=== PATIENT | male | born 1935 | race Caucasian/White ===

== ENCOUNTER → 2016-06-30 | Outpatient (CLI) | payer MEDICARE ==
--- NOTE | 2016-06-30 12:39 | XR ---
EXAMINATION TYPE: XR chest 2V DATE OF EXAM: 06/30/2016 12:33 PM HISTORY: pre-mri. REFERENCE: NONE. FINDINGS: Lung volumes are prominent. There is a lobulated 10 mm lesion in the right upper lobe. The lungs are otherwise clear. Pleural spaces are clear. There is mild hypertrophic spondylosis within the spine. IMPRESSION: LOBULATED 10 MM LESION IN THE RIGHT UPPER LOBE IS LIKELY BENIGN. NO DEFINITE LESION WAS SEEN ON A PRE VIOUS CT SCAN DATED 04/26/2015. 3 MONTHS FOLLOW-UP RADIOGRAPH WOULD BE SUGGESTED.
--- NOTE | 2016-06-30 12:40 | FL ---
EXAMINATION TYPE: FL barium swallow DATE OF EXAM ORDERED: 06/30/2016 12:32 PM HISTORY: Dysphasia. COMPARISON: None. FINDINGS: The esophagus distended normally with air and barium without evidence of obstructing or co nstricting disease. The mucosal pattern throughout the esophagus is normal. There is no significant h iatal hernia or reflux. Limited views of the stomach are normal. IMPRESSION: NORMAL AIR-CONTRAST ESOPHAGRAM.
== END | disposition home or self-care (01) ==
LOC: RADFLWHC 11:03
PROVIDERS: ATTEND Otolaryngology
DX: R91.1 Solitary pulmonary nodule (principal); R13.10 Dysphagia, unspecified; R49.0 Dysphonia
CPT/HCPCS: 71020; 74220

== ENCOUNTER → 2016-07-26 | Outpatient (CLI) | payer MEDICARE ==
--- NOTE | 2016-07-26 12:01 | CT ---
EXAMINATION TYPE: CT sinus wo con DATE OF EXAM: 07/26/2016 11:49 AM COMPARISON: NONE HISTORY: Chronic sinusitis per order. Headache and facial pain. CT DLP: 635 mGycm. Automated Exposure Control for Dose Reduction was Utilized. TECHNIQUE: CT scan of the sinuses is performed without contrast, axial images are obtained, coronal r eformatted images are also reviewed. FINDINGS: There is mild mucosal thickening with suspicious patchy opacification in the left sphenoid sinus. Remainder paranasal sinuses are clear. The ostiomeatal complex is patent bilaterally on the c oronal images. Visualized portion of mastoid air cells show no abnormal opacification. Scleral calcification in both globes is present bilaterally and a follow most is noted. Visualized portion of brain parenchyma laura ws age-related atrophy and chronic small vessel ischemic change. IMPRESSION: Acute on chronic left sphenoid sinus disease.
== END | disposition home or self-care (01) ==
LOC: RADCTMAIN 11:19
PROVIDERS: ATTEND Otolaryngology
DX: J34.9 Unspecified disorder of nose and nasal sinuses (principal)
CPT/HCPCS: 70486

== ENCOUNTER 2016-08-16 14:10 | Emergency (ER) | payer MEDICARE ==
[2016-08-16] MEDS ORDERED: SODIUM CHLORIDE 0.9% 1,000 ML IV STA (14:53)
--- NOTE | 2016-08-16 15:03 | ED ---
General Adult HPI - General Chief complaint: Recheck/Abnormal Lab/Rx Stated complaint: high sugars Time Seen by Provider: 08/16/16 14:31 Source: patient Mode of arrival: ambulatory Limitations: no limitations - History of Present Illness Initial comments: The patient is an 81-year-old male who presents to the ED with a chief complaint of sweatiness as well as elevated blood glucose level. Patient states that around 11 AM this morning he had an episode where he felt sweaty and diaphoretic in the bilateral arms. He states that he's felt fatigued over the course of the day. Patient notes that he checked his blood glucose after this episode of sweatiness and noted that it was elevated in the upper 100s. He rechecked it later in the day and noted that it was elevated above 200. As result, he came to the ED for further evaluation. Here in the ED, the patient' s blood glucose was noted to be greater than 250. Patient states that normally he checks his blood glucose level once a week and it's between 80 and 100. He states that he's had similar symptoms to today when he has had an elevated blood glucose in the past. Patient does have a history of CAD. Patient has no history of stent placement. He states that he was evaluated for a possible CABG but that this was not performed due to the fact that his obstructions seemed to be self resolving. Patient does have risk factors of hypertension, hyperlipidemia, diabetes. Patient states that his last hemoglobin A1c was less than 7, though he does not remember the number. Patient notes that he suffers from chronic sinusitis. He's been receiving treatment IV his doctor for this problem. This treatment is not included steroids. Patient denies any cough, shortness of breath. Patient denies any dysuria or hematuria. Patient states the only medication he takes for his diabetes is glipizide. He notes that he's been taking this medication as directed. None of his medications have been altered recently. - Related Data Home Medications Medication Instructions Recorded Confirmed Adta 1 tab PO DAILY 06/18/15 08/16/16 Alpha Lipoic Acid 50 mg PO DAILY 06/18/15 08/16/16 Aspirin 81 mg PO DAILY 06/18/15 08/16/16 B Complex-Vit C-Vit E-Zinc [Z-Bec] 1 tab PO DAILY 06/18/15 08/16/16 Benfotiamine 1 tab PO DAILY 06/18/15 08/16/16 Betasitosteral (Otc Supplement By 1 tab PO DAILY 06/18/15 08/16/16 Bacilio) Cinnamon Bark [Cinnamon] 500 mg PO DAILY 06/18/15 08/16/16 Joint Advantage Gold Complex 1 tab PO DAILY 06/18/15 08/16/16 L-Arginine 1 tab PO DAILY 06/18/15 08/16/16 L.acidoph,Paracasei, B.lactis 1 cap PO DAILY 06/18/15 08/16/16 [Probiotic] Erick [place] Extract 1 tab PO DAILY 06/18/15 08/16/16 [place] Q Plus 1 tab PO DAILY 06/18/15 08/16/16 Testofen 1 tab PO DAILY 06/18/15 08/16/16 Ubiquinol 100 mg PO DAILY 06/18/15 08/16/16 glipiZIDE [Glucotrol] 10 mg PO AC-BID 06/18/15 08/16/16 Cholecalciferol [Vitamin D3] 5,000 unit PO DAILY 08/16/16 08/16/16 Metoprolol Tartrate [Lopressor] 12.5 mg PO BID 08/16/16 08/16/16 Multivitamins, Thera [Multivitamin 1 tab PO DAILY 08/16/16 08/16/16 (formulary)] Vitamin B Complex 1 cap PO DAILY 08/16/16 08/16/16 fentaNYL 50MCG/HR PATCH [Duragesic 50 mcg TRANSDERM Q72H 08/16/16 08/16/16 50MCG/HR] Allergies Allergy/AdvReac Type Severity Reaction Status Date / Time Iodine and Iodide Containing Allergy Anaphylaxis Verified 08/16/16 14:27 Produc Review of Systems ROS Statement: Those systems with pertinent positive or pertinent negative responses have been documented in the HPI. ROS Other: All systems not noted in ROS Statement are negative. Constitutional: Reports: other (sweatiness, claminess). Denies: fever, chills, weakness Eyes: Denies: vision change ENT: Reports: congestion (chronic). Denies: throat pain Respiratory: Denies: cough, dyspnea, wheezes, hemoptysis, stridor Cardiovascular: Denies: chest pain, palpitations Endocrine: Reports: fatigue Gastrointestinal: Denies: abdominal pain, nausea, vomiting, diarrhea Genitourinary: Denies: urgency, dysuria, frequency, hematuria Musculoskeletal: Denies: back pain Skin: Denies: rash, lesions Neurological: Denies: headache, weakness, numbness, paresthesias, confusion Psychiatric: Denies: anxiety, depression Past Medical History Past Medical History: Coronary Artery Disease (CAD), Diabetes Mellitus, Eye Disorder, GERD/Reflux, Osteoarthritis (OA), Prostate Disorder Additional Past Medical History / Comment(s): OCC GERD. HX CATARACTS. CHRONIC BACK, LT KNEE. BPH. History of Any Multi-Drug Resistant Organisms: None Reported Past Surgical History: Appendectomy, Heart Catheterization Past Anesthesia/Blood Transfusion Reactions: No Reported Reaction Past Psychological History: Depression Additional Psychological History / Comment(s): "NORMAL" OCC Smoking Status: Never smoker Past Alcohol Use History: None Reported Past Drug Use History: None Reported - Past Family History Father Family Medical History: Cancer General Exam Limitations: no limitations General appearance: alert, in no apparent distress Head exam: Present: atraumatic, normocephalic Eye exam: Present: normal appearance, PERRL, other (conjunctiva are non-pale in appearance) Pupils: Present: normal accommodation ENT exam: Present: normal exam, normal oropharynx Neck exam: Present: normal inspection, full ROM Respiratory exam: Present: normal lung sounds bilaterally. Absent: respiratory distress, wheezes, rales, rhonchi, stridor, chest wall tenderness Cardiovascular Exam: Present: regular rate, normal rhythm GI/Abdominal exam: Present: soft. Absent: distended, tenderness, guarding, rebound Extremities exam: Present: normal inspection, full ROM. Absent: tenderness Back exam: Present: normal inspection, full ROM. Absent: tenderness Neurological exam: Present: alert, oriented X3. Absent: CN II-XII intact Psychiatric exam: Present: normal affect, normal mood Skin exam: Present: warm, dry, intact Course Vital Signs 08/16/16 08/16/16 08/16/16 14:10 15:43 17:08 Temperature 98.1 F 98 F 96.9 F L Pulse Rate 68 70 67 Respiratory 15 16 18 Rate Blood Pressure 133/63 111/60 124/57 O2 Sat by Pulse 97 98 99 Oximetry EKG Findings - EKG Comments: EKG Findings:: EKG demonstrates NSR with a RBBB. There is first degree AV block. This EKG resembles past EKG in terms of overall findings. Medical Decision Making - Medical Decision Making The patient is an 81-year-old male who presents to the ED with a chief complaint of elevated blood glucose level. Patient states that he also experienced an episode of diaphoresis earlier today. It is not associated with shortness of breath or chest pain. However, the patient does have multiple cardiac risk factors. Will check a troponin and EKG. Otherwise, will try to rule out possible infectious etiology that could cause patient's glucose level to be elevated. One should consider that the patient's blood glucose level could be elevated on a daily basis but that he is not noticing this because he is not checking his blood glucose daily. However, the patient states that the symptoms that he had today are typical when he has a elevated blood glucose. He notes that his hemoglobin A1c has been within normal limits. Is not changed any medications recently. He has not been on any steroids. 5:00 PM Patient has a repeat glucose at 250. Counseled patient that he might have underlying elevated glucose level at baseline. He needs to follow up with her primary care practitioner to further determine whether this is the case or if his glucose is acutely elevated. Patient asymptomatic in regards to his hyperglycemia at this point in time. He may need to have a change in his medications including the addition of metformin to his sulfonyurea. There is also the possibility that the patient's sulfonylurea medication is no longer working adequately. Counseled the patient with these possibilities. I have encouraged him to return to the ED should he have worsening symptoms, including increased episodes of clamminess and diaphoresis. I provided the patient with follow-up information to a new PCP at his request. I have answered all the patient's questions to his satisfaction. - Lab Data Result diagrams: 08/16/16 15:17 08/16/16 15:17 Lab Results 08/16/16 08/16/16 08/16/16 Range/Units 14:17 15:17 15:17 WBC 7.0 (3.8-10.6) k/uL RBC 4.42 (4.30-5.90) m/uL Hgb 13.9 (13.0-17.5) gm/dL Hct 40.7 (39.0-53.0) % MCV 92.1 (80.0-100.0) fL MCH 31.4 (25.0-35.0) pg MCHC 34.1 (31.0-37.0) g/dL RDW 13.4 (11.5-15.5) % Plt Count 516 H (150-450) k/uL Neutrophils % 80 % Lymphocytes % 14 % Monocytes % 4 % Eosinophils % 1 % Basophils % 1 % Neutrophils # 5.6 (1.3-7.7) k/uL Lymphocytes # 1.0 (1.0-4.8) k/uL Monocytes # 0.3 (0-1.0) k/uL Eosinophils # 0.1 (0-0.7) k/uL Basophils # 0.0 (0-0.2) k/uL Sodium 137 (137-145) mmol/L Potassium 4.8 (3.5-5.1) mmol/L Chloride 100 (98-107) mmol/L Carbon Dioxide 30 (22-30) mmol/L Anion Gap 7 mmol/L BUN 16 (9-20) mg/dL Creatinine 0.60 L (0.66-1.25) mg/dL Est GFR (MDRD) Af Amer >60 (>60 ml/min/1.73 sqM) Est GFR (MDRD) Non-Af >60 (>60 ml/min/1.73 sqM) Glucose 268 H (74-99) mg/dL POC Glucose (mg/dL) 250 H (75-99) mg/dL POC Glu [employer] Raman Mcgregor Calcium 8.8 (8.4-10.2) mg/dL Magnesium 2.0 (1.6-2.3) mg/dL Troponin I (0.000-0.034) ng/mL TSH 0.105 L (0.465-4.680) mIU/L Free T4 1.29 (0.78-2.19) ng/dL Urine Color Urine Appearance (Clear) Urine pH (5.0-8.0) Ur Specific [place] (1.001-1.035) Urine Protein (Negative) Urine Glucose (UA) (Negative) Urine Ketones (Negative) Urine Blood (Negative) Urine Nitrite (Negative) Urine Bilirubin (Negative) Urine Urobilinogen (<2.0) mg/dL Ur Leukocyte Esterase (Negative) 05/03/17 05/03/17 05/03/17 Range/Units 15:17 15:17 16:43 WBC (3.8-10.6) k/uL RBC (4.30-5.90) m/uL Hgb (13.0-17.5) gm/dL Hct (39.0-53.0) % MCV (80.0-100.0) fL MCH (25.0-35.0) pg MCHC (31.0-37.0) g/dL RDW (11.5-15.5) % Plt Count (150-450) k/uL Neutrophils % % Lymphocytes % % Monocytes % % Eosinophils % % Basophils % % Neutrophils # (1.3-7.7) k/uL Lymphocytes # (1.0-4.8) k/uL Monocytes # (0-1.0) k/uL Eosinophils # (0-0.7) k/uL Basophils # (0-0.2) k/uL Sodium (137-145) mmol/L Potassium (3.5-5.1) mmol/L Chloride (98-107) mmol/L Carbon Dioxide (22-30) mmol/L Anion Gap mmol/L BUN (9-20) mg/dL Creatinine (0.66-1.25) mg/dL Est GFR (MDRD) Af Amer (>60 ml/min/1.73 sqM) Est GFR (MDRD) Non-Af (>60 ml/min/1.73 sqM) Glucose (74-99) mg/dL POC Glucose (mg/dL) 250 H (75-99) mg/dL POC Glu [employer]riction Welding Machine Operator ID Tyler, Page Calcium (8.4-10.2) mg/dL Magnesium (1.6-2.3) mg/dL Troponin I <0.012 (0.000-0.034) ng/mL TSH (0.465-4.680) mIU/L Free T4 (0.78-2.19) ng/dL Urine Color Yellow Urine Appearance Clear (Clear) Urine pH 6.5 (5.0-8.0) Ur Specific [place] 1.011 (1.001-1.035) Urine Protein Negative (Negative) Urine Glucose (UA) 4+ H (Negative) Urine Ketones Negative (Negative) Urine Blood Negative (Negative) Urine Nitrite Negative (Negative) Urine Bilirubin Negative (Negative) Urine Urobilinogen <2.0 (<2.0) mg/dL Ur Leukocyte Esterase Negative (Negative) Disposition Clinical Impression: Hyperglycemia due to type 2 diabetes mellitus Disposition: HOME SELF-CARE Condition: Good Instructions: Type 2 Diabetes in Adults (ED), Diabetic Hyperglycemia (ED) Additional Instructions: Please follow up with Dr. Contreras (or the [facility]) within the next week regarding your visit to the ED. They can check your HbA1c and adjust your medications if needed. Please return to the ED should you symptoms worsen while at home, particularly if associated with chest pain or shortness of breath. I would recommend avoiding high carbohydrate foods and pursuing more protein- rich foods such as nuts, beans, eggs and oatmeal. Referrals: Brian Kaufman MD [Primary Care Provider] - 08/23/16 Blane Contreras MD [STAFF PHYSICIAN] - 08/23/16 (Dr. Contreras is an Internal Medicine physician. You can call his office to schedule a follow up appointment.) Time of Disposition: 16:59
[2016-08-16 15:26] LABS: Appearance,Urine Clear (Clear); Bilirubin,Urine Negative (Negative); Glucose,Urine (UA) 4+ (Negative); Ketones,Urine Negative (Negative); Leukocyte Esterase,Urine Negative (Negative); Nitrite,Urine Negative (Negative); PH, Urine 6.5 (5.0-8.0); Protein,Urine Negative (Negative); Specific Gravity,Urine 1.011 (1.001-1.035); UA Billing (MACRO vs. MICRO) CHEM; Urobilinogen,Urine <2.0 mg/dL (<2.0)
[2016-08-16 15:27] LABS: Basophils % (A) 1 %; CH 31.7; CHCM 34.6; Eosinophils # (A) 0.1 k/uL (0-0.7); Eosinophils % (A) 1 %; HCT 40.7 % (39.0-53.0); HDW 2.85; HGB 13.9 gm/dL (13.0-17.5); Luc # (Auto) 0.06; Luc % (Auto) 1; Lymphocytes % (A) 14 %; MCH 31.4 pg (25.0-35.0); MCHC 34.1 g/dL (31.0-37.0); MCV 92.1 fL (80.0-100.0); Mean Platelet Volume 7.4; Monocytes # (A) 0.3 k/uL (0-1.0); Monocytes % (A) 4 %; Neutrophils # (A) 5.6 k/uL (1.3-7.7); Neutrophils % (A) 80 %; RBC 4.42 m/uL (4.30-5.90); RDW 13.4 % (11.5-15.5); WBC (Perox) 6.69
[2016-08-16 15:38] LABS: Anion Gap 7 mmol/L; Blood Urea Nitrogen 16 mg/dL (9-20); Calcium 8.8 mg/dL (8.4-10.2); Carbon Dioxide 30 mmol/L (22-30); Chloride 100 mmol/L (98-107); Glucose 268 mg/dL (74-99); Non-African American GFR(MDRD) >60 (>60 ml/min/1.73 sqM); Potassium 4.8 mmol/L (3.5-5.1); Sodium 137 mmol/L (137-145)
[2016-08-16 15:50] LABS: Glucose,Whole Blood 250 mg/dL (75-99)
[2016-08-16 16:58] LABS: Glucose,Whole Blood 250 mg/dL (75-99)
[2016-08-16 17:08] VITALS: BP 124/57; PULSE 67; RESP 18; TEMP 96.9
== END 2016-08-16 17:08 | disposition home or self-care (01) ==
LOC: EC 14:10
DX: E11.65 Type 2 diabetes mellitus with hyperglycemia (principal); M19.90 Unspecified osteoarthritis, unspecified site; Z91.041 Radiographic dye allergy status; Z79.82 Long term (current) use of aspirin; Z79.84 Long term (current) use of oral hypoglycemic drugs; Z79.899 Other long term (current) drug therapy
CPT/HCPCS: 36415; 80048; 81003; 83735; 84439; 84443; 84484; 85025; 93005; 96360; 99285

== ENCOUNTER → 2016-09-29 | Outpatient (CLI) | payer MEDICARE ==
--- NOTE | 2016-09-29 13:16 | XR ---
EXAMINATION TYPE: XR chest 2V DATE OF EXAM: 09/29/2016 COMPARISON: NONE INDICATION: Previous abnormal chest x-ray TECHNIQUE: Frontal and lateral views of the chest are obtained. FINDINGS: The heart size is normal. The pulmonary vasculature is normal. Very faint nodularities in the right upper lobe less well visualized than on the prior exam. Hyperinf lation and increased retrosternal airspace can be compatible COPD.. IMPRESSION: 1. Right upper lobe density is less distinct on the current examination but remains present. Continue d monitoring is recommended with a follow-up two-view chest exam in 3 months.
== END | disposition home or self-care (01) ==
LOC: RADXRMAIN 12:51
PROVIDERS: ATTEND Otolaryngology
DX: J98.4 Other disorders of lung (principal)
CPT/HCPCS: 71020

== ENCOUNTER → 2017-08-27 | Outpatient (CLI) | payer MEDICARE ==
[2017-08-27 16:59] LABS: Basophils % (A) 0 %; Eosinophils # (A) 0.4 k/uL (0-0.7); Eosinophils % (A) 6 %; HCT 41.8 % (39.0-53.0); HGB 13.5 gm/dL (13.0-17.5); Lymphocytes % (A) 28 %; MCH 30.4 pg (25.0-35.0); MCHC 32.4 g/dL (31.0-37.0); MCV 93.8 fL (80.0-100.0); Mean Platelet Volume 7.5; Monocytes # (A) 0.4 k/uL (0-1.0); Monocytes % (A) 5 %; Neutrophils # (A) 4.3 k/uL (1.3-7.7); Neutrophils % (A) 60 %; Platelet Count 603 k/uL (150-450); RBC 4.45 m/uL (4.30-5.90); RDW 13.5 % (11.5-15.5); WBC 7.1 k/uL (3.8-10.6)
[2017-08-27 17:19] LABS: C Reactive Protein 14.3 mg/L (<10.0); Uric Acid 3.7 mg/dL (3.5-8.5)
[2017-08-27 18:18] LABS: Erythrocyte Sedimentation Rate 8 mm/hr (0-15)
[2017-08-28 03:28] LABS: Rheumatoid Factor <4 IU/mL (0-15)
[2017-08-28 10:58] LABS: HLA B27 NEGATIVE
== END ==
LOC: LABWHC1 16:18
PROVIDERS: ATTEND Family Medicine
DX: M06.4 Inflammatory polyarthropathy (principal)
CPT/HCPCS: 36415; 84550; 85025; 85652; 86038; 86140; 86431; 86812

== ENCOUNTER 2017-10-12 07:35 | Inpatient (IN) | payer MEDICARE ==
[2017-10-12 07:45] LABS: Glucose,Whole Blood 304 mg/dL (75-99)
[2017-10-12] MEDS ORDERED: SODIUM CHLORIDE 0.9% 500 ML IV STA (08:01)
--- NOTE | 2017-10-12 08:17 | ED ---
General Adult HPI - General Chief complaint: Weakness Stated complaint: Weakness Time Seen by Provider: 10/12/17 07:35 Source: patient, family, EMS, RN notes reviewed Mode of arrival: EMS Limitations: no limitations - History of Present Illness Initial comments: This is an 82-year-old male who presents emergency Department with a history of back pain and chronic left knee pain. Patient states last night he woke up and tried to the bathroom he collapsed to the floor states this is something it hasn 't happened in the past. Patient states he felt as though both legs simultaneously got weak and he fell to the floor this again happened this morning and the was concerned because in both cases he verbally was not making sense for about 3-4 minutes and it also is incontinent of urine when he said at the edge of the bed. states that this never happened in the past. Patient denies headache patient denies any focal numbness or weakness. Patient denies any lightheadedness or dizziness. Patient denied chest pain difficulty breathing shortness of breath. Patient denied any recent illness. Patient denies any fever chills or cough patient denied any abdominal pain patient denies nausea vomiting or any recent diarrhea. - Related Data Home Medications Medication Instructions Recorded Confirmed Alpha Lipoic Acid 50 mg PO DAILY 06/18/15 10/12/17 Aspirin 81 mg PO DAILY 06/18/15 10/12/17 B Complex-Vit C-Vit E-Zinc [Z-Bec] 1 tab PO DAILY 06/18/15 10/12/17 Benfotiamine 1 tab PO DAILY 06/18/15 10/12/17 Cinnamon Bark [Cinnamon] 500 mg PO DAILY 06/18/15 10/12/17 L.acidoph,Paracasei, B.lactis 1 cap PO DAILY 06/18/15 10/12/17 [Probiotic] Testofen 1 tab PO DAILY 06/18/15 10/12/17 glipiZIDE [Glucotrol] 10 mg PO AC-BID 06/18/15 10/12/17 Cholecalciferol [Vitamin D3] 5,000 unit PO DAILY 08/16/16 10/12/17 Metoprolol Tartrate [Lopressor] 12.5 mg PO BID 08/16/16 10/12/17 Multivitamins, Thera [Multivitamin 1 tab PO DAILY 08/16/16 10/12/17 (formulary)] Vitamin B Complex 1 cap PO DAILY 08/16/16 10/12/17 fentaNYL 50MCG/HR PATCH [Duragesic 50 mcg TRANSDERM Q72H 08/16/16 10/12/17 50MCG/HR] Allergies Allergy/AdvReac Type Severity Reaction Status Date / Time Iodine and Iodide Containing Allergy Anaphylaxis Verified 10/12/17 08:25 Produc Penicillins AdvReac Diarrhea Verified 10/12/17 08:25 Review of Systems ROS Statement: Those systems with pertinent positive or pertinent negative responses have been documented in the HPI. ROS Other: All systems not noted in ROS Statement are negative. Past Medical History Past Medical History: Coronary Artery Disease (CAD), Diabetes Mellitus, Eye Disorder, GERD/Reflux, Osteoarthritis (OA), Prostate Disorder Additional Past Medical History / Comment(s): OCC GERD. HX CATARACTS. CHRONIC BACK, LT KNEE. BPH. History of Any Multi-Drug Resistant Organisms: None Reported Past Surgical History: Appendectomy, Heart Catheterization Past Anesthesia/Blood Transfusion Reactions: No Reported Reaction Past Psychological History: Depression Smoking Status: Never smoker Past Alcohol Use History: None Reported Past Drug Use History: None Reported - Past Family History Father Family Medical History: Cancer General Exam - General Exam Comments Initial Comments: GENERAL: Patient is well-developed and well-nourished. Patient is nontoxic and well- hydrated and is in no acute distress. ENT: Neck is soft and supple. No significant lymphadenopathy is noted. Oropharynx is clear. Moist mucous membranes. Neck has full range of motion without eliciting any pain. EYES: The sclera were anicteric and conjunctiva were pink and moist. Extraocular movements were intact and pupils were equal round and reactive to light. Eyelids were unremarkable. PULMONARY: Unlabored respirations. Good breath sounds bilaterally. No audible rales rhonchi or wheezing was noted. CARDIOVASCULAR: There is a regular rate and rhythm without any murmurs gallops or rubs. ABDOMEN: Soft and nontender with normal bowel sounds. No palpable organomegaly was noted. There is no palpable pulsatile mass. SKIN: Skin is clear with no lesions or rashes and otherwise unremarkable. NEUROLOGIC: Patient is alert and oriented x3. Cranial nerves II through XII are grossly intact. Motor and sensory are also intact. Normal speech, volume and content. Symmetrical smile. MUSCULOSKELETAL: Normal extremities with adequate strength and full range of motion. No lower extremity swelling or edema. No calf tenderness. LYMPHATICS: No significant lymphadenopathy is noted PSYCHIATRIC: Normal psychiatric evaluation. Normal interpersonal interactions appears functionally intact in deals appropriately with others. No signs of depression. No signs of anxiety. Limitations: no limitations Course Vital Signs 10/12/17 10/12/17 10/12/17 07:45 08:56 09:32 Temperature 98.6 F Pulse Rate 99 81 82 Respiratory 16 18 18 Rate Blood Pressure 143/74 155/67 138/63 O2 Sat by Pulse 95 100 99 Oximetry 10/12/17 10:00 Temperature Pulse Rate 91 Respiratory 18 Rate Blood Pressure 128/59 O2 Sat by Pulse 98 Oximetry Medical Decision Making - Medical Decision Making EKG shows sinus arrhythmia with occasional PAC at 99 bpm ME interval is 170 QRS is 120 QT interval 364 QTC is 467. Patient's EKG shows right bundle branch block. There is no ST segment elevation or depression. Patient's hemoglobin dropped from 13.5 -9.5 since his last visit and he had positive Gastroccult. At this point time I thought the patient needed to be admitted I started the patient on Protonix I spoke with Dr. Kaufman he agreed to admit the patient admitted the patient I consult to general surgery and GI. - Lab Data Result diagrams: 10/12/17 08:12 10/12/17 08:12 Lab Results 10/12/17 10/12/17 10/12/17 Range/Units 07:41 08:12 08:12 WBC 15.3 H (3.8-10.6) k/uL RBC 3.18 L (4.30-5.90) m/uL Hgb 9.5 L D (13.0-17.5) gm/dL Hct 30.3 L (39.0-53.0) % MCV 95.3 (80.0-100.0) fL MCH 29.8 (25.0-35.0) pg MCHC 31.3 (31.0-37.0) g/dL RDW 14.1 (11.5-15.5) % Plt Count 1344 H* D (150-450) k/uL Neutrophils % 83 % Lymphocytes % 11 % Monocytes % 5 % Eosinophils % 1 % Basophils % 1 % Neutrophils # 12.7 H (1.3-7.7) k/uL Lymphocytes # 1.6 (1.0-4.8) k/uL Monocytes # 0.8 (0-1.0) k/uL Eosinophils # 0.1 (0-0.7) k/uL Basophils # 0.1 (0-0.2) k/uL Manual Slide Review Performed Poikilocytosis (manual Present PT (9.0-12.0) sec INR (<1.2) APTT (22.0-30.0) sec Sodium (137-145) mmol/L Potassium (3.5-5.1) mmol/L Chloride (98-107) mmol/L Carbon Dioxide (22-30) mmol/L Anion Gap mmol/L BUN (9-20) mg/dL Creatinine (0.66-1.25) mg/dL Est GFR (CKD-EPI)AfAm (>60 ml/min/1.73 sqM) Est GFR (CKD-EPI)NonAf (>60 ml/min/1.73 sqM) Glucose (74-99) mg/dL POC Glucose (mg/dL) 304 H (75-99) mg/dL POC Glu Optical Effects Camera Operator ID Arnulfo Thomas Plasma Lactic Acid Raji (0.7-2.0) mmol/L Calcium (8.4-10.2) mg/dL Magnesium (1.6-2.3) mg/dL Total Bilirubin (0.2-1.3) mg/dL AST (17-59) U/L ALT (21-72) U/L Alkaline Phosphatase (38-126) U/L Total Creatine Kinase <20 L (55-170) U/L CK-MB (CK-2) 0.7 (0.0-2.4) ng/mL CK-MB (CK-2) Rel Index Troponin I <0.012 (0.000-0.034) ng/mL Total Protein (6.3-8.2) g/dL Albumin (3.5-5.0) g/dL Urine Color Urine Appearance (Clear) Urine pH (5.0-8.0) Ur Specific Castine (1.001-1.035) Urine Protein (Negative) Urine Glucose (UA) (Negative) Urine Ketones (Negative) Urine Blood (Negative) Urine Nitrite (Negative) Urine Bilirubin (Negative) Urine Urobilinogen (<2.0) mg/dL Ur Leukocyte Esterase (Negative) Gastric Occult Blood (Negative) Blood Type Blood Type Confirm Blood Type Recheck Antibody Screen Spec Expiration Date 10/12/17 10/12/17 10/12/17 Range/Units 08:12 08:12 08:12 WBC (3.8-10.6) k/uL RBC (4.30-5.90) m/uL Hgb (13.0-17.5) gm/dL Hct (39.0-53.0) % MCV (80.0-100.0) fL MCH (25.0-35.0) pg MCHC (31.0-37.0) g/dL RDW (11.5-15.5) % Plt Count (150-450) k/uL Neutrophils % % Lymphocytes % % Monocytes % % Eosinophils % % Basophils % % Neutrophils # (1.3-7.7) k/uL Lymphocytes # (1.0-4.8) k/uL Monocytes # (0-1.0) k/uL Eosinophils # (0-0.7) k/uL Basophils # (0-0.2) k/uL Manual Slide Review Poikilocytosis (manual PT 10.5 (9.0-12.0) sec INR 1.1 (<1.2) APTT 21.2 L (22.0-30.0) sec Sodium 138 (137-145) mmol/L Potassium 5.0 (3.5-5.1) mmol/L Chloride 103 (98-107) mmol/L Carbon Dioxide 25 (22-30) mmol/L Anion Gap 10 mmol/L BUN 58 H (9-20) mg/dL Creatinine 0.70 (0.66-1.25) mg/dL Est GFR (CKD-EPI)AfAm >90 (>60 ml/min/1.73 sqM) Est GFR (CKD-EPI)NonAf 87 (>60 ml/min/1.73 sqM) Glucose 280 H (74-99) mg/dL POC Glucose (mg/dL) (75-99) mg/dL POC Glu Optical Effects Camera Operator ID Plasma Lactic Acid Raji (0.7-2.0) mmol/L Calcium 8.5 (8.4-10.2) mg/dL Magnesium 2.1 (1.6-2.3) mg/dL Total Bilirubin 0.1 L (0.2-1.3) mg/dL AST 18 (17-59) U/L ALT 30 (21-72) U/L Alkaline Phosphatase 37 L (38-126) U/L Total Creatine Kinase (55-170) U/L CK-MB (CK-2) (0.0-2.4) ng/mL CK-MB (CK-2) Rel Index Troponin I (0.000-0.034) ng/mL Total Protein 4.8 L (6.3-8.2) g/dL Albumin 3.0 L (3.5-5.0) g/dL Urine Color Urine Appearance (Clear) Urine pH (5.0-8.0) Ur Specific Castine (1.001-1.035) Urine Protein (Negative) Urine Glucose (UA) (Negative) Urine Ketones (Negative) Urine Blood (Negative) Urine Nitrite (Negative) Urine Bilirubin (Negative) Urine Urobilinogen (<2.0) mg/dL Ur Leukocyte Esterase (Negative) Gastric Occult Blood (Negative) Blood Type A Positive Blood Type Confirm Blood Type Recheck CABO Indicated Antibody Screen NEGATIVE Spec Expiration Date 10/15/2017 - 231110/12/17 10/12/17 10/12/17 Range/Units 08:20 08:55 10:00 WBC (3.8-10.6) k/uL RBC (4.30-5.90) m/uL Hgb (13.0-17.5) gm/dL Hct (39.0-53.0) % MCV (80.0-100.0) fL MCH (25.0-35.0) pg MCHC (31.0-37.0) g/dL RDW (11.5-15.5) % Plt Count (150-450) k/uL Neutrophils % % Lymphocytes % % Monocytes % % Eosinophils % % Basophils % % Neutrophils # (1.3-7.7) k/uL Lymphocytes # (1.0-4.8) k/uL Monocytes # (0-1.0) k/uL Eosinophils # (0-0.7) k/uL Basophils # (0-0.2) k/uL Manual Slide Review Poikilocytosis (manual PT (9.0-12.0) sec INR (<1.2) APTT (22.0-30.0) sec Sodium (137-145) mmol/L Potassium (3.5-5.1) mmol/L Chloride (98-107) mmol/L Carbon Dioxide (22-30) mmol/L Anion Gap mmol/L BUN (9-20) mg/dL Creatinine (0.66-1.25) mg/dL Est GFR (CKD-EPI)AfAm (>60 ml/min/1.73 sqM) Est GFR (CKD-EPI)NonAf (>60 ml/min/1.73 sqM) Glucose (74-99) mg/dL POC Glucose (mg/dL) (75-99) mg/dL POC Glu Optical Effects Camera Operator ID Plasma Lactic Acid Raji 1.7 (0.7-2.0) mmol/L Calcium (8.4-10.2) mg/dL Magnesium (1.6-2.3) mg/dL Total Bilirubin (0.2-1.3) mg/dL AST (17-59) U/L ALT (21-72) U/L Alkaline Phosphatase (38-126) U/L Total Creatine Kinase (55-170) U/L CK-MB (CK-2) (0.0-2.4) ng/mL CK-MB (CK-2) Rel Index Troponin I (0.000-0.034) ng/mL Total Protein (6.3-8.2) g/dL Albumin (3.5-5.0) g/dL Urine Color Yellow Urine Appearance Clear (Clear) Urine pH 5.5 (5.0-8.0) Ur Specific Castine 1.018 (1.001-1.035) Urine Protein Negative (Negative) Urine Glucose (UA) 4+ H (Negative) Urine Ketones 2+ H (Negative) Urine Blood Negative (Negative) Urine Nitrite Negative (Negative) Urine Bilirubin Negative (Negative) Urine Urobilinogen <2.0 (<2.0) mg/dL Ur Leukocyte Esterase Negative (Negative) Gastric Occult Blood Positive (Negative) Blood Type Blood Type Confirm Blood Type Recheck Antibody Screen Spec Expiration Date 10/12/17 Range/Units 10:15 WBC (3.8-10.6) k/uL RBC (4.30-5.90) m/uL Hgb (13.0-17.5) gm/dL Hct (39.0-53.0) % MCV (80.0-100.0) fL MCH (25.0-35.0) pg MCHC (31.0-37.0) g/dL RDW (11.5-15.5) % Plt Count (150-450) k/uL Neutrophils % % Lymphocytes % % Monocytes % % Eosinophils % % Basophils % % Neutrophils # (1.3-7.7) k/uL Lymphocytes # (1.0-4.8) k/uL Monocytes # (0-1.0) k/uL Eosinophils # (0-0.7) k/uL Basophils # (0-0.2) k/uL Manual Slide Review Poikilocytosis (manual PT (9.0-12.0) sec INR (<1.2) APTT (22.0-30.0) sec Sodium (137-145) mmol/L Potassium (3.5-5.1) mmol/L Chloride (98-107) mmol/L Carbon Dioxide (22-30) mmol/L Anion Gap mmol/L BUN (9-20) mg/dL Creatinine (0.66-1.25) mg/dL Est GFR (CKD-EPI)AfAm (>60 ml/min/1.73 sqM) Est GFR (CKD-EPI)NonAf (>60 ml/min/1.73 sqM) Glucose (74-99) mg/dL POC Glucose (mg/dL) (75-99) mg/dL POC Glu Optical Effects Camera Operator ID Plasma Lactic Acid Raji (0.7-2.0) mmol/L Calcium (8.4-10.2) mg/dL Magnesium (1.6-2.3) mg/dL Total Bilirubin (0.2-1.3) mg/dL AST (17-59) U/L ALT (21-72) U/L Alkaline Phosphatase (38-126) U/L Total Creatine Kinase (55-170) U/L CK-MB (CK-2) (0.0-2.4) ng/mL CK-MB (CK-2) Rel Index Troponin I (0.000-0.034) ng/mL Total Protein (6.3-8.2) g/dL Albumin (3.5-5.0) g/dL Urine Color Urine Appearance (Clear) Urine pH (5.0-8.0) Ur Specific Castine (1.001-1.035) Urine Protein (Negative) Urine Glucose (UA) (Negative) Urine Ketones (Negative) Urine Blood (Negative) Urine Nitrite (Negative) Urine Bilirubin (Negative) Urine Urobilinogen (<2.0) mg/dL Ur Leukocyte Esterase (Negative) Gastric Occult Blood (Negative) Blood Type Blood Type Confirm A Positive Blood Type Recheck Antibody Screen Spec Expiration Date Disposition Clinical Impression: Upper GI bleed, Generalized weakness Disposition: ADMITTED IP TO THIS [facility] Referrals: Brian Kaufman MD [Primary Care Provider] - 1-2 days Time of Disposition: 11:08
[2017-10-12] MEDS ORDERED: ONDANSETRON 4 MG/2 ML VIAL IVP STA (08:26)
[2017-10-12 08:34] LABS: ALT 30 U/L (21-72); AST 18 U/L (17-59); Alkaline Phosphatase 37 U/L (38-126); Anion Gap 10 mmol/L; Blood Urea Nitrogen 58 mg/dL (9-20); Calcium 8.5 mg/dL (8.4-10.2); Carbon Dioxide 25 mmol/L (22-30); Chloride 103 mmol/L (98-107); Glucose 280 mg/dL (74-99); Magnesium 2.1 mg/dL (1.6-2.3); Sodium 138 mmol/L (137-145); Total Bilirubin 0.1 mg/dL (0.2-1.3); Total Protein 4.8 g/dL (6.3-8.2)
[2017-10-12 08:46] LABS: Creatine Kinase <20 U/L (55-170); INR 1.1 (<1.2); Prothrombin Time 10.5 sec (9.0-12.0)
[2017-10-12 08:58] LABS: Creatine Kinase MB 0.7 ng/mL (0.0-2.4); Troponin I <0.012 ng/mL (0.000-0.034)
[2017-10-12 09:04] LABS: Basophils # (A) 0.1 k/uL (0-0.2); Basophils % (A) 1 %; Eosinophils # (A) 0.1 k/uL (0-0.7); Eosinophils % (A) 1 %; HCT 30.3 % (39.0-53.0); Lymphocytes # (A) 1.6 k/uL (1.0-4.8); Lymphocytes % (A) 11 %; MCH 29.8 pg (25.0-35.0); MCHC 31.3 g/dL (31.0-37.0); MCV 95.3 fL (80.0-100.0); Mean Platelet Volume 7.3; Monocytes # (A) 0.8 k/uL (0-1.0); Monocytes % (A) 5 %; Neutrophils # (A) 12.7 k/uL (1.3-7.7); Neutrophils % (A) 83 %; RBC 3.18 m/uL (4.30-5.90); RDW 14.1 % (11.5-15.5); WBC 15.3 k/uL (3.8-10.6)
[2017-10-12 09:07] LABS: HGB 9.5 gm/dL (13.0-17.5)
[2017-10-12 09:13] LABS: Partial Thromboplastin Time 21.2 sec (22.0-30.0)
[2017-10-12 09:25] LABS: Platelet Count 1344 k/uL (150-450); Poikilocytosis (M) Present
--- NOTE | 2017-10-12 09:28 | CT ---
EXAMINATION TYPE: CT brain wo con DATE OF EXAM: 10/12/2017 HISTORY: Weakness CT DLP: 1210 mGycm. Automated Exposure Control for Dose Reduction was Utilized. TECHNIQUE: CT scan of the head is performed without contrast. COMPARISON: None. FINDINGS: There is no acute intracranial hemorrhage or midline shift identified. There is diffuse v entricular and sulcal prominence consistent with diffuse age-related cerebral atrophy. There is low- attenuation in the periventricular white matter consistent with chronic small vessel ischemic change. Scleral calcification both globes is present. There is patchy opacification in the left sphenoid sin us otherwise paranasal sinuses are clear. Dominant right vertebral artery is incidentally noted. IMPRESSION: No acute intracranial hemorrhage or midline shift. There is mild to moderate diffuse ag e-related cerebral atrophy and minimal chronic small vessel ischemic change noted.
--- NOTE | 2017-10-12 09:41 | XR ---
EXAMINATION TYPE: XR chest 2V DATE OF EXAM: 10/12/2017 COMPARISON: 09/29/2016 HISTORY: 82-year-old male with weakness TECHNIQUE: Frontal and lateral views FINDINGS: Heart normal size. Mild atherosclerotic arch calcifications. Some chronic left-sided rib deformities from healed rib fractures. Focal sclerosis projecting along the sixth posterior right rib unchanged p robable bone island. Hyperinflation with increased retrosternal clear space. No consolidation or pleu ral effusion. IMPRESSION: Hyperinflation may reflect underlying emphysema. No acute cardiopulmonary process.
[2017-10-12 10:12] LABS: Appearance,Urine Clear (Clear); Bilirubin,Urine Negative (Negative); Blood,Urine Negative (Negative); Color,Urine Yellow; Glucose,Urine (UA) 4+ (Negative); Leukocyte Esterase,Urine Negative (Negative); Nitrite,Urine Negative (Negative); PH, Urine 5.5 (5.0-8.0); Protein,Urine Negative (Negative); Specific Gravity,Urine 1.018 (1.001-1.035); Urobilinogen,Urine <2.0 mg/dL (<2.0)
[2017-10-12 10:33] LABS: Ketones,Urine 2+ (Negative)
[2017-10-12] MEDS ORDERED: PANTOPRAZOLE 40 MG/10 ML VIAL IVP ONE (11:06)
[2017-10-12] MEDS ORDERED: SODIUM CHLORIDE 0.9% 1,000 ML IV ONE (11:08)
[2017-10-12 12:42] LABS: Basophils # (A) 0.1 k/uL (0-0.2); Basophils % (A) 0 %; Eosinophils % (A) 0 %; HCT 27.7 % (39.0-53.0); HGB 8.6 gm/dL (13.0-17.5); Lymphocytes # (A) 1.1 k/uL (1.0-4.8); Lymphocytes % (A) 5 %; MCH 29.8 pg (25.0-35.0); MCHC 31.1 g/dL (31.0-37.0); MCV 95.8 fL (80.0-100.0); Mean Platelet Volume 7.2; Monocytes # (A) 0.9 k/uL (0-1.0); Monocytes % (A) 4 %; Neutrophils # (A) 19.5 k/uL (1.3-7.7); Neutrophils % (A) 90 %; RBC 2.89 m/uL (4.30-5.90); RDW 14.4 % (11.5-15.5); WBC 21.7 k/uL (3.8-10.6)
[2017-10-12 12:52] LABS: Platelet Count 1332 k/uL (150-450)
--- NOTE | 2017-10-12 13:45 | P.HPIM ---
History of Present Illness H&P Date: 10/12/17 Chief Complaint: Generalized weakness 82-year-old male who presented to the emergency room with a chief complaint of generalized weakness. The patient states he was ambulating in his house and on two separate occasions he was unable to bear his own weight and fell to to the floor. The patient states he has no other symptoms except just feeling very tired and weak. He denies shortness of breath. Denies chest pain or pressure. Denies nausea or vomiting. Denies hematuria. Denies melena, hematemesis, or hematochezia. The patient has a history of coronary artery disease, diabetes mellitus, gastroesophageal reflux disease, osteoarthritis, and BPH. He also has a history of depression. The patient has chronic back pain and chronic left knee pain and is prescribed a fentanyl patch. Chest x-ray : Hyperinflation may reflect underlying emphysema. No acute cardiopulmonary process. CT brain: No acute cranial hemorrhage or midline shift. There is mild- to-moderate diffuse age-related cerebral atrophy and minimal chronic small vessel ischemic changes noted. Laboratory data: WBC 15.3. Hemoglobin 9.5. Platelet count 1344. Sodium 138. Potassium 5.0. BUN 58. Creatinine 0.70. Glucose 280. Troponin negative 1. Lactic acid 1.7. Urinalysis reveals 4+ glucose and 2+ ketones. Stool for occult blood was positive. The patient was admitted to the hospital under the care of Dr. Kaufman. Consultations were placed to GI and general surgery. He is currently in the emergency room awaiting a bed assignment on the medical floor. Review of Systems GENERAL: Positive for generalized weakness and fatigue. Patient denies fever. Denies chills. EYES: Denies blurred vision. Denies vision changes. Denies eye pain. EARS, NOSE, MOUTH, & THROAT: Denies headache. Denies sore throat. Denies ear pain. RESPIRATORY: Denies cough. Denies shortness of breath. Denies sputum production. Denies hemoptysis. CARDIOVASCULAR: Denies chest pain or pressure. Denies palpitations. Denies arrhythmias. GASTROINTESTINAL: Denies abdominal pain. Denies diarrhea. Denies constipation. Denies nausea. Denies vomiting. Denies heartburn. Denies blood in the stool. GENITOURINARY: Positive for episode of urinary incontinence. Denies urinary frequency. Denies burning. Denies dysuria. Denies cloudy urine. Denies blood in the urine. MUSCULOSKELETAL: Positive for chronic back and knee pain. Positive for weakness. INTEGUMENTARY: Denies pruitis. Denies rash. PSYCHIATRIC: Denies suicidal or homicial ideations. ENDOCRINE: Denies weight change. Denies polydipsia. Denies polyuria. HEMATOLOGIC: Denies bleeding disorders. Past Medical History Past Medical History: Coronary Artery Disease (CAD), Diabetes Mellitus, Eye Disorder, GERD/Reflux, Osteoarthritis (OA), Prostate Disorder Additional Past Medical History / Comment(s): OCC GERD. HX CATARACTS. CHRONIC BACK, LT KNEE. BPH. History of Any Multi-Drug Resistant Organisms: None Reported Past Surgical History: Appendectomy, Heart Catheterization Past Anesthesia/Blood Transfusion Reactions: No Reported Reaction Past Psychological History: Depression Smoking Status: Never smoker Past Alcohol Use History: None Reported Past Drug Use History: None Reported - Past Family History Father Family Medical History: Cancer Medications and Allergies Home Medications Medication Instructions Recorded Confirmed Type Alpha Lipoic Acid 50 mg PO DAILY 06/18/15 10/12/17 History Aspirin 81 mg PO DAILY 06/18/15 10/12/17 History B Complex-Vit C-Vit E-Zinc [Z-Bec] 1 tab PO DAILY 06/18/15 10/12/17 History Benfotiamine 1 tab PO DAILY 06/18/15 10/12/17 History Cinnamon Bark [Cinnamon] 500 mg PO DAILY 06/18/15 10/12/17 History L.acidoph,Paracasei, B.lactis 1 cap PO DAILY 06/18/15 10/12/17 History [Probiotic] Testofen 1 tab PO DAILY 06/18/15 10/12/17 History glipiZIDE [Glucotrol] 10 mg PO AC-BID 06/18/15 10/12/17 History Cholecalciferol [Vitamin D3] 5,000 unit PO DAILY 08/16/16 10/12/17 History Metoprolol Tartrate [Lopressor] 12.5 mg PO BID 08/16/16 10/12/17 History Multivitamins, Thera [Multivitamin 1 tab PO DAILY 08/16/16 10/12/17 History (formulary)] Vitamin B Complex 1 cap PO DAILY 08/16/16 10/12/17 History fentaNYL 50MCG/HR PATCH [Duragesic 50 mcg TRANSDERM Q72H 08/16/16 10/12/17 History 50MCG/HR] Allergies Allergy/AdvReac Type Severity Reaction Status Date / Time Iodine and Iodide Containing Allergy Anaphylaxis Verified 10/12/17 08:25 Produc Penicillins AdvReac Diarrhea Verified 10/12/17 08:25 Physical Exam Vitals: Vital Signs Temp Pulse Resp BP Pulse Ox 10/12/17 10:00 91 18 128/59 98 10/12/17 09:32 82 18 138/63 99 10/12/17 08:56 81 18 155/67 100 10/12/17 07:45 98.6 F 99 16 143/74 95 Intake and Output 10/11/17 10/12/17 10/12/17 22:59 06:59 14:59 Output Total 600 Balance -600 Output: Urine 600 Straight 600 Other: Weight 61.235 kg GENERAL: This is a 82-year-old male in no apparent distress at the time of examination, but appears to be feeling unwell. Pleasant and cooperative. HEENT: Head is atraumatic, normocephalic. Pupils are equal, round, and reactive to light. Sclerae anicteric. Conjunctivae are clear. Mucus membranes of the mouth are moist. Neck is supple. RESPIRATORY: Lungs coarse throughout. No wheezes or rales present. No use of accessory muscles. Patient maintaining oxygen saturation greater than 92%. No chest wall tenderness is noted on palpation or with deep breathing. CARDIOVASCULAR: Regular rate and rhythm. S1 and S2 noted. No systolic or diastolic murmur auscultated. No JVD noted. No S3 or S4 noted. GASTROINTESTINAL: No distention noted. Abdomen soft and round. Normal active bowel sounds auscultated x 4 quadrants. No pain or tenderness noted upon palpation. INTEGUMENTARY: No cyanosis. No jaundice. No rashes noted. No cellulitis noted. EXTREMITIES: 2+ peripheral pulses. No evidence of peripheral edema. No calf tenderness noted. NEUROLOGIC: Cranial nerves II-XII intact. PSYCHIATRIC: Awake, alert, and oriented X 3. Appropriate affect. Intact judgement and insight. Results CBC & Chem 7: 10/12/17 12:14 10/12/17 08:12 Labs: Abnormal Lab Results - Last 24 Hours (Table) 10/12/17 10/12/17 10/12/17 Range/Units 07:41 08:12 08:12 WBC 15.3 H (3.8-10.6) k/uL RBC 3.18 L (4.30-5.90) m/uL Hgb 9.5 L D (13.0-17.5) gm/dL Hct 30.3 L (39.0-53.0) % Plt Count 1344 H* D (150-450) k/uL Neutrophils # 12.7 H (1.3-7.7) k/uL APTT (22.0-30.0) sec BUN (9-20) mg/dL Glucose (74-99) mg/dL POC Glucose (mg/dL) 304 H (75-99) mg/dL Total Bilirubin (0.2-1.3) mg/dL Alkaline Phosphatase (38-126) U/L Total Creatine Kinase <20 L (55-170) U/L Total Protein (6.3-8.2) g/dL Albumin (3.5-5.0) g/dL Urine Glucose (UA) (Negative) Urine Ketones (Negative) 10/12/17 10/12/17 10/12/17 Range/Units 08:12 08:12 10:00 WBC (3.8-10.6) k/uL RBC (4.30-5.90) m/uL Hgb (13.0-17.5) gm/dL Hct (39.0-53.0) % Plt Count (150-450) k/uL Neutrophils # (1.3-7.7) k/uL APTT 21.2 L (22.0-30.0) sec BUN 58 H (9-20) mg/dL Glucose 280 H (74-99) mg/dL POC Glucose (mg/dL) (75-99) mg/dL Total Bilirubin 0.1 L (0.2-1.3) mg/dL Alkaline Phosphatase 37 L (38-126) U/L Total Creatine Kinase (55-170) U/L Total Protein 4.8 L (6.3-8.2) g/dL Albumin 3.0 L (3.5-5.0) g/dL Urine Glucose (UA) 4+ H (Negative) Urine Ketones 2+ H (Negative) Assessment and Plan Plan: ASSESSMENT: Normocytic, normochromic anemia, hemoglobin 9.5 on admission down from 13.5, stool for occult blood positive, suspect acute blood loss from GI source Leukocytosis, likely reactive, no evidence of sepsis at this time Thrombocytosis, suspect reactive secondary to acute blood loss Diabetes mellitus, type II Hyperglycemia Coronary artery disease Gastroesophageal reflux disease Chronic back pain, prescribed Fentanyl patch Osteoarthritis with chronic left knee pain History of benign prostatic hyperplasia Depression PLAN: General surgery and GI on consult. Await recommendations and input Hold aspirin Monitor hemoglobin Q 6 hours Clear liquids today then NPO after midnight IVF at 75cc/hr Hold Glipizide. Novolog sliding scale ACHS Home meds as appropriate Monitor labs GI prophylaxis: Protonix 40 mg IV BID DVT prophylaxis: SCDs to bilateral LE Monitor vital signs and address as appropriate Further recommendations pending patient's course Nurse practitioner note has been reviewed by physician. Signing provider agrees with the documented findings, assessment, and plan of care.
[2017-10-12] MEDS: INSULIN ASPART 100 UNIT/ML 1 ML 10 ML VIAL SQ SCH ×3 (13:58→20:50)
[2017-10-12 14:08] LABS: Anisocytosis (M) Present; Crenated RBC Present; Hypersegmented Neutrophils Present; Poikilocytosis (M) Present
[2017-10-12 16:39] LABS: Glucose,Whole Blood 300 mg/dL (75-99)
[2017-10-12 18:04] LABS: HCT 24.9 % (39.0-53.0); MCH 30.4 pg (25.0-35.0); MCV 94.8 fL (80.0-100.0); Mean Platelet Volume 7.6; RBC 2.63 m/uL (4.30-5.90); RDW 14.3 % (11.5-15.5); WBC 20.7 k/uL (3.8-10.6)
[2017-10-12 18:16] LABS: Platelet Count 1186 k/uL (150-450)
[2017-10-12 18:46] LABS: Hemoglobin A1C 6.6 % (4.0-6.0)
[2017-10-12 20:44] LABS: Glucose,Whole Blood 266 mg/dL (75-99)
[2017-10-12] MEDS: PANTOPRAZOLE 40 MG/10 ML VIAL IVP SCH (20:51)
[2017-10-12] MEDS: METOPROLOL TARTRATE 12.5 MG TAB PO SCH (20:51)
[2017-10-12 23:45] LABS: HCT 23.6 % (39.0-53.0); HGB 7.6 gm/dL (13.0-17.5); MCH 30.3 pg (25.0-35.0); MCHC 32.2 g/dL (31.0-37.0); MCV 94.3 fL (80.0-100.0); Mean Platelet Volume 8.3; RDW 14.3 % (11.5-15.5); WBC 22.6 k/uL (3.8-10.6)
[2017-10-12 23:48] LABS: Platelet Count 1089 k/uL (150-450)
[2017-10-13] MEDS ORDERED: diphenhydrAMINE 25 MG CAP PO PRN (02:06)
[2017-10-13] MEDS ORDERED: ACETAMINOPHEN TAB 325 MG TAB PO PRN (02:06)
[2017-10-13 06:28] LABS: Glucose,Whole Blood 332 mg/dL (75-99)
[2017-10-13] MEDS: INSULIN ASPART 100 UNIT/ML 1 ML 10 ML VIAL SQ SCH ×2 (06:35→12:39)
[2017-10-13 06:42] LABS: Basophils # (A) 0.2 k/uL (0-0.2); Basophils % (A) 1 %; Eosinophils % (A) 0 %; HCT 23.3 % (39.0-53.0); HGB 7.3 gm/dL (13.0-17.5); Lymphocytes # (A) 1.2 k/uL (1.0-4.8); Lymphocytes % (A) 4 %; MCH 30.4 pg (25.0-35.0); MCHC 31.1 g/dL (31.0-37.0); MCV 97.5 fL (80.0-100.0); Mean Platelet Volume 7.2; Monocytes # (A) 1.7 k/uL (0-1.0); Monocytes % (A) 6 %; Neutrophils % (A) 89 %; RBC 2.39 m/uL (4.30-5.90); RDW 14.4 % (11.5-15.5)
[2017-10-13 06:49] LABS: Platelet Count 1508 k/uL (150-450); WBC 30.4 k/uL (3.8-10.6)
[2017-10-13 07:11] LABS: Anion Gap 15 mmol/L; Blood Urea Nitrogen 33 mg/dL (9-20); Calcium 8.4 mg/dL (8.4-10.2); Carbon Dioxide 17 mmol/L (22-30); Chloride 108 mmol/L (98-107); Glucose 308 mg/dL (74-99); Potassium 4.5 mmol/L (3.5-5.1); Sodium 140 mmol/L (137-145)
[2017-10-13] MEDS ORDERED: PROPOFOL 10 MG/ML 20 ML VIAL IV ONE (07:31)
[2017-10-13] MEDS ORDERED: LIDOCAINE 1% INJ 10MG/ML (20 ML MDV) ONE (07:31)
[2017-10-13] MEDS ORDERED: LACTATED RINGERS 1,000 ML IV ONE (07:36)
[2017-10-13 07:47] LABS: Basophils # (A) 0.1 k/uL (0-0.2); Basophils % (A) 0 %; Eosinophils % (A) 0 %; HCT 25.2 % (39.0-53.0); HGB 7.5 gm/dL (13.0-17.5); Lymphocytes # (A) 1.4 k/uL (1.0-4.8); Lymphocytes % (A) 4 %; MCH 29.4 pg (25.0-35.0); MCV 98.1 fL (80.0-100.0); Mean Platelet Volume 7.1; Monocytes # (A) 1.3 k/uL (0-1.0); Monocytes % (A) 4 %; Neutrophils # (A) 30.5 k/uL (1.3-7.7); Neutrophils % (A) 91 %; RBC 2.57 m/uL (4.30-5.90); RDW 14.5 % (11.5-15.5)
[2017-10-13 07:48] LABS: Platelet Count 1586 k/uL (150-450); WBC 33.5 k/uL (3.8-10.6)
--- NOTE | 2017-10-13 07:55 | P.PCN ---
Date of Procedure: 10/13/17 Procedure(s) Performed: BRIEF HISTORY: Patient is a 82-year-old, pleasant, white male, admitted hospital with generalized weakness and dizziness the last few days duration. This morning he passed out at home and came to the emergency room and while in the ER had a large amount of coffee-ground emesis. His initial hemoglobin was 9.5 and it dropped to 8 g/dL last night. Labs from this morning is still pending. His and scheduled for an upper endoscopy to evaluate further. No history of peptic ulcer disease or recent NSAID use. PROCEDURE PERFORMED: Esophagogastroduodenoscopy with cautery using a gold probe. PREOPERATIVE DIAGNOSIS: Acute upper GI bleed/severe anemia. IV sedation per anesthesia. PROCEDURE: After informed consent was obtained, the patient was brought into the endoscopy unit. IV sedation was administered by Anesthesia under continuous monitoring. Initially the Olympus GIF-140 video endoscope was inserted into the mouth. Esophagus intubated without any difficulty. It was gradually advanced into the stomach and duodenum and carefully examined. In the duodenal bulb there was a 5 mm superficial ulceration identified with no active bleeding. The second part of the duodenum appeared normal. The scope at this time was withdrawn to the stomach, adequately insufflated with air, and upon careful examination, mucosa of the antrum, appeared normal. In the proximal body of the stomach there were scattered angiectasia 2 of which had active oozing which was cauterized using the Gold probe. There was bilious material noted in the stomach. There was no active bleeding identified. The rest of the body, cardia and the fundus appeared normal. The scope was then withdrawn into the esophagus. Small hiatal hernia noted. The GE junction was located at 39 cm from the incisors. The esophagus appeared normal. There were 2 superficial erosions consistent with LA grade B reflux esophagitis and the patient tolerated the procedure well. IMPRESSION: 1. Few scattered angiectasia in the proximal body of the stomach, one of which had mild oozing, status post cautery using a gold probe. 2. 5 mm superficial duodenal bulbar ulcer with no active bleeding. 3. Small hiatal hernia and LA grade B reflux esophagitis RECOMMENDATIONS: The findings of this examination were discussed with the patient well as his family. He will continue with IV Protonix and repeat CBC every 12 hours he will be started on soft diet.
[2017-10-13] MEDS: PANTOPRAZOLE 40 MG/10 ML VIAL IVP SCH (08:16)
[2017-10-13] MEDS: METOPROLOL TARTRATE 12.5 MG TAB PO SCH (08:16)
[2017-10-13] MEDS ORDERED: SODIUM CHLORIDE 0.9% 1,000 ML IV SCH (08:45)
--- NOTE | 2017-10-13 08:47 | CONS ---
CONSULTATION DATE OF CONSULTATION: 10/13/17 REQUESTING PHYSICIAN: Dr. Kaufman. REASON FOR CONSULTATION: Acute upper GI bleed. HISTORY OF PRESENT ILLNESS: The patient is an 82-year-old pleasant white male with a history of chronic back pain. Apparently had been having some weakness and fatigue for the last few days duration. He woke up yesterday morning in the bathroom and collapsed onto the floor and hence his family brought him to the emergency room. In the ER, while he was being evaluated, he had a large amount of coffee-grounds emesis. Subsequently, the patient was admitted [facility] the [facility] and since being in the [facility], he did not have any further episodes of bleeding. He denies any black tarry stools. He has not been feeling well for the last few days. He reports no abdominal pain. He reports no significant change in his bowel habits. He denies any fever, chills, or night sweats. He denies any chest pain, shortness of breath. PAST MEDICAL HISTORY: Significant for chronic back pain. History of diabetes mellitus, coronary artery disease, history of GERD, degenerative joint disease, benign prostatic hypertrophy, chronic back pain. MEDICATIONS: At home include aspirin, vitamin B complex, probiotic, Glucotrol, vitamin D3, Lopressor, fentanyl patch that has been gradually being weaned off recently. ALLERGIES: To PENICILLIN. PAST SURGICAL HISTORY: The past surgical history of appendectomy and cardiac catheterization. SOCIAL HISTORY: No smoking or alcohol use. FAMILY HISTORY: Unremarkable. REVIEW OF SYSTEMS: Cardiopulmonary: Denies any chest pain or shortness of breath. Genitourinary: No dysuria or hematuria. Musculoskeletal: Chronic back pain. Neurology: Unremarkable. Psychiatric: Unremarkable. ENT/vision unremarkable. Constitutional fatigue, weakness, and restlessness for the last few days. No weight loss. PHYSICAL EXAMINATION: He appears comfortable in no apparent distress. Vital signs stable. Blood pressure is 124/61, pulse rate 90, temperature 98.4. HEENT examination unremarkable. Conjunctivae pale. Sclerae anicteric. Oral cavity no lesions. NECK: No jugular venous distention or lymph node enlargement. CHEST was clear to auscultation. HEART: Regular rate and rhythm. Abdomen was soft, it was nontender, nondistended. Liver and spleen not palpable. Bowel sounds are positive. No organomegaly. EXTREMITIES: No pedal edema. SKIN no rashes. NEUROLOGIC: Alert and oriented x3. No focal deficits. LAB: Done yesterday in the emergency room, WBC was 15.3, hemoglobin 9.5, and platelets were 1344. Last night WBC was 22.6 Around midnight, hemoglobin was 7.6 and platelets 1086. This morning CBC is still pending. BUN is 58, creatinine 0.7. ALT, AST, T-bilirubin and alkaline phosphatase are normal. Urinalysis showed 4+ glucose and 2+ ketones. Occult blood was positive. IMPRESSION: This is a patient who was not feeling well for the last few days duration, had an episode of syncope at home yesterday morning and he was brought into the emergency room and while in the ER, had a large amount of coffee-grounds emesis. His baseline labs showed a hemoglobin of 13 g in August of this year. He presents with a hemoglobin of 9.5, presently dropped to 7.6 g/dL. Morning labs are still pending at the time of this dictation. He had only one episode of coffee-grounds emesis and no melena through the night. No prior history of peptic ulcer disease. RECOMMENDATIONS: 1. Continue with IV Protonix 40 mg q.12 hours. 2. We will proceed with an upper endoscopy today. I discussed with the patient risks, benefits, and complications and he is agreeable to it. Thank you for this consultation. JAIMEE / JANY: [id number] /
--- NOTE | 2017-10-13 08:58 | XR ---
EXAMINATION TYPE: XR chest 1V DATE OF EXAM: 10/13/2017 COMPARISON: Prior chest 10/12/2017 HISTORY: Abnormal chest x-ray TECHNIQUE: Single frontal view of the chest is obtained. FINDINGS: No pneumothorax or pleural effusion. Cardiac mediastinal silhouette, pulmonary vascularity and mireya not significantly changed accounting for differences in technique. Old left-sided rib fract ures are stable. No evident airspace disease. Aorta is dense. Interstitium mildly increased. Patient is rotated. IMPRESSION: Correlate to exclude a component of volume overload, pulmonary venous hypertension and i nterstitial edema. Follow-up is recommended.
--- NOTE | 2017-10-13 10:04 | P.PN ---
Subjective 82-year-old male who presented to the emergency room with a chief complaint of generalized weakness. The patient states he was ambulating in his house and on two separate occasions he was unable to bear his own weight and fell to to the floor. The patient states he has no other symptoms except just feeling very tired and weak. He denies shortness of breath. Denies chest pain or pressure. Denies nausea or vomiting. Denies hematuria. Denies melena, hematemesis, or hematochezia. The patient has a history of coronary artery disease, diabetes mellitus, gastroesophageal reflux disease, osteoarthritis, and BPH. He also has a history of depression. The patient has chronic back pain and chronic left knee pain and is prescribed a fentanyl patch. Chest x-ray : Hyperinflation may reflect underlying emphysema. No acute cardiopulmonary process. CT brain: No acute cranial hemorrhage or midline shift. There is mild- to-moderate diffuse age-related cerebral atrophy and minimal chronic small vessel ischemic changes noted. Laboratory data: WBC 15.3. Hemoglobin 9.5. Platelet count 1344. Sodium 138. Potassium 5.0. BUN 58. Creatinine 0.70. Glucose 280. Troponin negative 1. Lactic acid 1.7. Urinalysis reveals 4+ glucose and 2+ ketones. Stool for occult blood was positive. The patient was admitted to the hospital under the care of Dr. Kaufman. Consultations were placed to GI and general surgery. He is currently in the emergency room awaiting a bed assignment on the medical floor. 10/13/2017: Overnight, patient slept poorly. For some unknown reason, his IV fluid was hep-locked even though he remained nothing by mouth after midnight for procedure. He complains of profound fatigue. He is pale. He denies any chest pains or shortness of breath. He is status post EGD with cautery this morning. His is at bedside and is case discussed with her as well. Objective - Vital Signs Vital signs: Vital Signs Temp 97.1 F L 10/13/17 08:26 Pulse 114 H 10/13/17 08:27 Resp 16 10/13/17 08:27 BP 101/57 10/13/17 08:26 Pulse Ox 92 L 10/13/17 08:26 Intake & Output 10/12/17 10/13/17 10/13/17 18:59 06:59 18:59 Intake Total 200 150 Output Total 750 550 Balance -550 -550 150 Weight 59.5 kg 51 kg Intake: IV 100 Oral 200 50 Output: Urine 750 550 Straight 600 Other: Voiding Method Urinal Urinal Urinal - Exam GENERAL: This is a 82-year-old male appears listless at the time of examination RESPIRATORY: Lungs coarse throughout. No wheezes or rales present. No use of accessory muscles. Patient maintaining oxygen saturation greater than 92%. No chest wall tenderness is noted on palpation or with deep breathing. CARDIOVASCULAR: Mildly tachycardic rate and regular rhythm. S1 and S2 noted. No systolic or diastolic murmur auscultated. No JVD noted. No S3 or S4 noted. GASTROINTESTINAL: No distention noted. Abdomen soft and round. Normal active bowel sounds auscultated x 4 quadrants. No pain or tenderness noted upon palpation. INTEGUMENTARY: No cyanosis. No jaundice. No rashes noted. No cellulitis noted. EXTREMITIES: 2+ peripheral pulses. No evidence of peripheral edema. No calf tenderness noted. NEUROLOGIC: Cranial nerves II-XII intact. PSYCHIATRIC: Awake, alert, and oriented X 3. Appropriate affect. Intact judgement and insight. - Labs CBC & Chem 7: 10/13/17 07:13 10/13/17 06:12 Labs: Abnormal Lab Results - Last 24 Hours (Table) 10/12/17 10/12/17 10/12/17 Range/Units 10:00 12:14 16:36 WBC 21.7 H (3.8-10.6) k/uL RBC 2.89 L (4.30-5.90) m/uL Hgb 8.6 L (13.0-17.5) gm/dL Hct 27.7 L (39.0-53.0) % MCHC (31.0-37.0) g/dL Plt Count 1332 H* (150-450) k/uL Neutrophils # 19.5 H (1.3-7.7) k/uL Monocytes # (0-1.0) k/uL Chloride (98-107) mmol/L Carbon Dioxide (22-30) mmol/L BUN (9-20) mg/dL Glucose (74-99) mg/dL POC Glucose (mg/dL) 300 H (75-99) mg/dL Urine Glucose (UA) 4+ H (Negative) Urine Ketones 2+ H (Negative) 10/12/17 10/12/17 10/12/17 Range/Units 17:54 20:40 23:34 WBC 20.7 H 22.6 H (3.8-10.6) k/uL RBC 2.63 L 2.50 L (4.30-5.90) m/uL Hgb 8.0 L 7.6 L (13.0-17.5) gm/dL Hct 24.9 L 23.6 L (39.0-53.0) % MCHC (31.0-37.0) g/dL Plt Count 1186 H* 1089 H* (150-450) k/uL Neutrophils # (1.3-7.7) k/uL Monocytes # (0-1.0) k/uL Chloride (98-107) mmol/L Carbon Dioxide (22-30) mmol/L BUN (9-20) mg/dL Glucose (74-99) mg/dL POC Glucose (mg/dL) 266 H (75-99) mg/dL Urine Glucose (UA) (Negative) Urine Ketones (Negative) 10/13/17 10/13/17 10/13/17 Range/Units 06:12 06:12 06:25 WBC 30.4 H* (3.8-10.6) k/uL RBC 2.39 L (4.30-5.90) m/uL Hgb 7.3 L (13.0-17.5) gm/dL Hct 23.3 L (39.0-53.0) % MCHC (31.0-37.0) g/dL Plt Count 1508 H* (150-450) k/uL Neutrophils # 27.0 H (1.3-7.7) k/uL Monocytes # 1.7 H (0-1.0) k/uL Chloride 108 H (98-107) mmol/L Carbon Dioxide 17 L (22-30) mmol/L BUN 33 H (9-20) mg/dL Glucose 308 H (74-99) mg/dL POC Glucose (mg/dL) 332 H (75-99) mg/dL Urine Glucose (UA) (Negative) Urine Ketones (Negative) 10/13/17 Range/Units 07:13 WBC 33.5 H* (3.8-10.6) k/uL RBC 2.57 L (4.30-5.90) m/uL Hgb 7.5 L (13.0-17.5) gm/dL Hct 25.2 L (39.0-53.0) % MCHC 30.0 L (31.0-37.0) g/dL Plt Count 1586 H* (150-450) k/uL Neutrophils # 30.5 H (1.3-7.7) k/uL Monocytes # 1.3 H (0-1.0) k/uL Chloride (98-107) mmol/L Carbon Dioxide (22-30) mmol/L BUN (9-20) mg/dL Glucose (74-99) mg/dL POC Glucose (mg/dL) (75-99) mg/dL Urine Glucose (UA) (Negative) Urine Ketones (Negative) Assessment and Plan (1) Duodenal ulcer Current Visit: Yes Status: Acute Code(s): K26.9 - DUODENAL ULCER, UNSP ACUTE OR CHRONIC, W/O HEMOR OR PERF SNOMED Code(s): 36645801 (2) Acute esophagitis Current Visit: Yes Status: Acute Code(s): K20.9 - ESOPHAGITIS, UNSPECIFIED SNOMED Code(s): 822737940 (3) Hiatal hernia Current Visit: Yes Status: Acute Code(s): K44.9 - DIAPHRAGMATIC HERNIA WITHOUT OBSTRUCTION OR GANGRENE SNOMED Code(s): 69789135 (4) Acute blood loss anemia Current Visit: Yes Status: Acute Code(s): D62 - ACUTE POSTHEMORRHAGIC ANEMIA SNOMED Code(s): 663770872 (5) Dehydration Current Visit: Yes Status: Acute Code(s): E86.0 - DEHYDRATION SNOMED Code( s): 53808155 (6) Generalized weakness Current Visit: Yes Status: Acute Code(s): R53.1 - WEAKNESS SNOMED Code(s) : 06512196 (7) Upper GI bleed Current Visit: Yes Status: Acute Code(s): K92.2 - GASTROINTESTINAL HEMORRHAGE, UNSPECIFIED SNOMED Code(s): 20106183 (8) Thrombocytosis Current Visit: Yes Status: Acute Code(s): D47.3 - ESSENTIAL (HEMORRHAGIC) THROMBOCYTHEMIA SNOMED Code(s): 4408920 (9) Leukocytosis, unspecified Current Visit: Yes Status: Acute Code(s): D72.829 - ELEVATED WHITE BLOOD CELL COUNT, UNSPECIFIED SNOMED Code(s): 499084393 (10) Dorsalgia of lumbar region Current Visit: Yes Status: Acute Code(s): M54.5 - LOW BACK PAIN SNOMED Code(s): 143063215 Plan: His leukocytosis and thrombocytosis are most likely reactive and secondary to his blood loss. Due to his dehydration and anemia, I will bolus him to 50 mL IV fluid, continue his IV fluid. I'm unsure how or why his IV fluid get stopped after midnight, being that he was nothing by mouth. The order was for IV fluid at 75 mL an hour. He is status post EGD with the cautery. We'll continue to monitor his hemoglobin every 6 hourly. I'll repeat a basic metabolic panel and 12 hours and in a.m. He will most likely need a unit of blood in the next 6-12 hours. He'll be reevaluated in 24 hours. He may need to be transferred to intensive care unit.
[2017-10-13 11:17] VITALS: BMI 16.1
[2017-10-13 11:33] LABS: Glucose,Whole Blood 303 mg/dL (75-99)
--- NOTE | 2017-10-13 12:46 | P.GSCN ---
History of Present Illness Consult date: 10/13/17 Reason for Consult: GI bleed History of present illness: Patient seen today on consult for upper GI bleed. Patient was in the ER yesterday after being found by his family to be weak confused with near syncopal episodes. In the emergency department he had an episode of coffee- ground emesis. There was no preceding rectal bleeding or melena. He underwent upper endoscopy which showed 2 small areas of oozing that were cauterized. Patient denies pain. Apparently he has chronic shoulder and back pain. Today he says he feels ill. He states he is short of breath. He has been found to have a climbing white blood cell count with his recent WBC of 33.5. He is tachycardic. Blood pressure slightly low. Hemoglobin 7.5. 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 History of Any Multi-Drug Resistant Organisms: None Reported Past Surgical History: Appendectomy, Heart Catheterization, Tonsillectomy Additional Past Surgical History / Comment(s): 2016 cardiac cath with severe disease-recommended CABG but pt declined, bilateral cataract surgery/lens implants. Past Anesthesia/Blood Transfusion Reactions: No Reported Reaction Additional Psychological History / Comment(s): Pt resides with his spouse of 65yrs. He uses no assistive device. He drives. Smoking Status: Never smoker Past Alcohol Use History: None Reported Past Drug Use History: None Reported - Past Family History Father Family Medical History: Cancer Additional Family Medical History / Comment(s): Father of prostrate cancer at the age of 87yrs. Mother Family Medical History: COPD Additional Family Medical History / Comment(s): smoker Medications and Allergies Home Medications Medication Instructions Recorded Confirmed Type Alpha Lipoic Acid 50 mg PO DAILY 06/18/15 10/12/17 History Aspirin 81 mg PO DAILY 06/18/15 10/12/17 History B Complex-Vit C-Vit E-Zinc [Z-Bec] 1 tab PO DAILY 06/18/15 10/12/17 History Benfotiamine 1 tab PO DAILY 06/18/15 10/12/17 History Cinnamon Bark [Cinnamon] 500 mg PO DAILY 06/18/15 10/12/17 History L.acidoph,Paracasei, B.lactis 1 cap PO DAILY 06/18/15 10/12/17 History [Probiotic] Testofen 1 tab PO DAILY 06/18/15 10/12/17 History glipiZIDE [Glucotrol] 10 mg PO AC-BID 06/18/15 10/12/17 History Cholecalciferol [Vitamin D3] 5,000 unit PO DAILY 08/16/16 10/12/17 History Metoprolol Tartrate [Lopressor] 12.5 mg PO BID 08/16/16 10/12/17 History Multivitamins, Thera [Multivitamin 1 tab PO DAILY 08/16/16 10/12/17 History (formulary)] Vitamin B Complex 1 cap PO DAILY 08/16/16 10/12/17 History fentaNYL 50MCG/HR PATCH [Duragesic 50 mcg TRANSDERM DIRECTED 08/16/16 History 50MCG/HR] Naproxen Sod/Diphenhydramine 1 each PO HS PRN 10/12/17 10/12/17 History [Aleve Pm Caplet] Allergies Allergy/AdvReac Type Severity Reaction Status Date / Time Iodine and Iodide Containing Allergy Anaphylaxis Verified 10/12/17 08:25 Produc Penicillins AdvReac Diarrhea Verified 10/12/17 08:25 Surgical - Exam Vital Signs Temp Pulse Resp BP Pulse Ox 98.6 F 99 16 143/74 95 10/12/17 07:45 10/12/17 07:45 10/12/17 07:45 10/12/17 07:45 10/12/17 07:45 Physical exam: General: Well-developed, malnourished appearing male in acute distress, appears short of breath HEENT: Normocephalic, sclerae nonicteric Abdomen: Nontender, nondistended Extremities: No edema Neuro: Alert Results - Labs 10/13/17 07:13 10/13/17 06:12 Abnormal Lab Results - Last 24 Hours (Table) 10/12/17 10/12/17 10/12/17 Range/Units 12:14 16:36 17:54 WBC 21.7 H 20.7 H (3.8-10.6) k/uL RBC 2.89 L 2.63 L (4.30-5.90) m/uL Hgb 8.6 L 8.0 L (13.0-17.5) gm/dL Hct 27.7 L 24.9 L (39.0-53.0) % MCHC (31.0-37.0) g/dL Plt Count 1332 H* 1186 H* (150-450) k/uL Neutrophils # 19.5 H (1.3-7.7) k/uL Monocytes # (0-1.0) k/uL Chloride (98-107) mmol/L Carbon Dioxide (22-30) mmol/L BUN (9-20) mg/dL Glucose (74-99) mg/dL POC Glucose (mg/dL) 300 H (75-99) mg/dL 10/12/17 10/12/17 10/13/17 Range/Units 20:40 23:34 06:12 WBC 22.6 H 30.4 H* (3.8-10.6) k/uL RBC 2.50 L 2.39 L (4.30-5.90) m/uL Hgb 7.6 L 7.3 L (13.0-17.5) gm/dL Hct 23.6 L 23.3 L (39.0-53.0) % MCHC (31.0-37.0) g/dL Plt Count 1089 H* 1508 H* (150-450) k/uL Neutrophils # 27.0 H (1.3-7.7) k/uL Monocytes # 1.7 H (0-1.0) k/uL Chloride (98-107) mmol/L Carbon Dioxide (22-30) mmol/L BUN (9-20) mg/dL Glucose (74-99) mg/dL POC Glucose (mg/dL) 266 H (75-99) mg/dL 10/13/17 10/13/17 10/13/17 Range/Units 06:12 06:25 07:13 WBC 33.5 H* (3.8-10.6) k/uL RBC 2.57 L (4.30-5.90) m/uL Hgb 7.5 L (13.0-17.5) gm/dL Hct 25.2 L (39.0-53.0) % MCHC 30.0 L (31.0-37.0) g/dL Plt Count 1586 H* (150-450) k/uL Neutrophils # 30.5 H (1.3-7.7) k/uL Monocytes # 1.3 H (0-1.0) k/uL Chloride 108 H (98-107) mmol/L Carbon Dioxide 17 L (22-30) mmol/L BUN 33 H (9-20) mg/dL Glucose 308 H (74-99) mg/dL POC Glucose (mg/dL) 332 H (75-99) mg/dL 10/13/17 Range/Units 11:31 WBC (3.8-10.6) k/uL RBC (4.30-5.90) m/uL Hgb (13.0-17.5) gm/dL Hct (39.0-53.0) % MCHC (31.0-37.0) g/dL Plt Count (150-450) k/uL Neutrophils # (1.3-7.7) k/uL Monocytes # (0-1.0) k/uL Chloride (98-107) mmol/L Carbon Dioxide (22-30) mmol/L BUN (9-20) mg/dL Glucose (74-99) mg/dL POC Glucose (mg/dL) 303 H (75-99) mg/dL Diabetes panel 10/13/17 Range/Units 06:12 Sodium 140 (137-145) mmol/L Potassium 4.5 (3.5-5.1) mmol/L Chloride 108 H (98-107) mmol/L Carbon Dioxide 17 L (22-30) mmol/L BUN 33 H (9-20) mg/dL Creatinine 0.77 (0.66-1.25) mg/dL Glucose 308 H (74-99) mg/dL Calcium 8.4 (8.4-10.2) mg/dL Calcium panel 10/13/17 Range/Units 06:12 Calcium 8.4 (8.4-10.2) mg/dL Pituitary panel 10/13/17 Range/Units 06:12 Sodium 140 (137-145) mmol/L Potassium 4.5 (3.5-5.1) mmol/L Chloride 108 H (98-107) mmol/L Carbon Dioxide 17 L (22-30) mmol/L BUN 33 H (9-20) mg/dL Creatinine 0.77 (0.66-1.25) mg/dL Glucose 308 H (74-99) mg/dL Calcium 8.4 (8.4-10.2) mg/dL Adrenal panel 10/13/17 Range/Units 06:12 Sodium 140 (137-145) mmol/L Potassium 4.5 (3.5-5.1) mmol/L Chloride 108 H (98-107) mmol/L Carbon Dioxide 17 L (22-30) mmol/L BUN 33 H (9-20) mg/dL Creatinine 0.77 (0.66-1.25) mg/dL Glucose 308 H (74-99) mg/dL Calcium 8.4 (8.4-10.2) mg/dL Assessment and Plan (1) Upper GI bleed Narrative/Plan: Patient short of breath with tachypnea and hypotension and tachycardia. Elevated white blood cell count. Evaluate for sepsis. Check abdominal x-rays. Agree with infectious disease evaluation. I spoke with Dr. Kaufman and he agrees with transfer to the ICU. I gave a description of the patient's case to Dr. Almeida who is now consulted. Current Visit: Yes Status: Acute Code(s): K92.2 - GASTROINTESTINAL HEMORRHAGE, UNSPECIFIED SNOMED Code(s): 38683799
[2017-10-13 13:20] LABS: Appearance,Urine Clear (Clear); Bilirubin,Urine Negative (Negative); Blood,Urine Small (Negative); Color,Urine Yellow; Glucose,Urine (UA) 4+ (Negative); Leukocyte Esterase,Urine Negative (Negative); Mucus,Urine Rare /hpf; Nitrite,Urine Negative (Negative); PH, Urine 5.5 (5.0-8.0); Protein,Urine Trace (Negative); RBC,Urine 12 /hpf (0-5); Squamous Epithelial Cell,Urine <1 /hpf (0-4); Urobilinogen,Urine <2.0 mg/dL (<2.0); WBC,Urine 2 /hpf (0-5)
[2017-10-13 13:22] LABS: Ketones,Urine 4+ (Negative)
[2017-10-13 13:23] LABS: HGB 7.4 gm/dL (13.0-17.5); Hypochromasia Moderate; MCH 29.2 pg (25.0-35.0); MCHC 28.7 g/dL (31.0-37.0); MCV 101.9 fL (80.0-100.0); Macrocytosis Slight; RBC 2.55 m/uL (4.30-5.90); RDW 14.6 % (11.5-15.5)
[2017-10-13 13:27] LABS: Platelet Count 1536 k/uL (150-450); WBC 39.1 k/uL (3.8-10.6)
--- NOTE | 2017-10-13 13:34 | XR ---
2 view abdomen HISTORY: Abdominal pain and ileus 2 views of the abdomen submitted Lung bases show probable interstitial lung changes. There is no pneumoperitoneum or bowel obstruction evident. Air-filled loops of small and large bowel, air distended stomach noted. Degenerative disc c hanges in the visualized spine. IMPRESSION: Nonobstructive bowel gas pattern, follow-up as indicated.
[2017-10-13] MEDS ORDERED: MORPHINE SULFATE 2 MG/ML SYRINGE IV PRN (14:10)
[2017-10-13] MEDS ORDERED: NALOXONE 0.4 MG/ML 1 ML VIAL IV PRN (14:10)
[2017-10-13] MEDS ORDERED: NOREPINEPHRINE 4 MG in DEXTROSE 5% IN WATER 250 ML IV SCH ×2 (14:15)
[2017-10-13] MEDS ORDERED: SODIUM CHLORIDE 0.9% 1,000 ML IV ONE (14:17)
[2017-10-13 14:24] LABS: Glucose,Whole Blood 281 mg/dL (75-99)
[2017-10-13 14:48] LABS: Troponin I 19.2 ng/mL (0.000-0.034)
[2017-10-13] MEDS ORDERED: VANCOMYCIN IV PER PHARMACY 1 EACH MISC MISCELLANE PRN (14:56)
[2017-10-13] MEDS ORDERED: SODIUM CHLORIDE 0.9% 2,500 ML IV ONE (15:03)
[2017-10-13] MEDS ORDERED: Potassium Replacement Protocol 1 EACH MISC MISCELLANE PRN (15:38)
[2017-10-13] MEDS ORDERED: Magnesium Replacement Protocol 1 EACH MISC MISCELLANE PRN (15:38)
[2017-10-13] MEDS ORDERED: INSULIN REGULAR BOLUS (FROM DRIP BAG) IV ONE (15:38)
[2017-10-13] MEDS ORDERED: D5-0.45% NACL WITH KCL 20MEQ/L 1,000 ML IV SCH (15:45)
[2017-10-13] MEDS ORDERED: INSULIN REGULAR 100 UNIT in SODIUM CHLORIDE 0.9% 100 ML IV SCH (15:45)
[2017-10-13 15:56] LABS: INR 1.6 (<1.2); Partial Thromboplastin Time 23.2 sec (22.0-30.0); Prothrombin Time 14.6 sec (9.0-12.0)
[2017-10-13] MEDS ORDERED: VANCOMYCIN 1,000 MG in SODIUM CHLORIDE 0.9% 250 ML IVPB SCH (16:00)
[2017-10-13] MEDS ORDERED: CEFEPIME 2 GM in SODIUM CHLORIDE 0.9% 50 ML IVPB SCH (16:00)
[2017-10-13 16:03] LABS: Phosphorus 5.9 mg/dL (2.5-4.5)
--- NOTE | 2017-10-13 16:14 | P.CONS ---
History of Present Illness - Reason for Consult Consult date: 10/13/17 - Chief Complaint fall - History of Present Illness 82-year-old male is brought to hospital because of significant difficulties with progressive weakness over the last few days. Is related is been staying at home with his elderly but is now had 2 events there was having difficulties bearing weight especially and it was left leg and having a fall to the floor. Because of his profound weakness he was brought into the hospital where he was found evidence of significant anemia, leukocytosis and thrombocytosis. Call blood was positive in gastroenterology was consulted. With evidence of a gastrointestinal bleed he was taken to the operating room and EGD was performed and 2 areas of bleeding of the stomach cauterized. There is also evidence of esophagitis without bleeding. The patient was brought back to his room on selective care be continued to worsen, becoming increasingly fatigued, hypotensive continued and has pallor worse. He transferred to the intensive care unit for further intervention. The patient is anxious. He is a poor historian but when given a moment is able to state his name, the date, his 's name. He however is certainly feeling very poorly which limits his responses. He relates he just feels poorly overall he feels very weak. At the moment he does not feel nauseated. He states he simply hurts all over and does not localize. 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 History of Any Multi-Drug Resistant Organisms: None Reported Past Surgical History: Appendectomy, Heart Catheterization, Tonsillectomy Additional Past Surgical History / Comment(s): 2016 cardiac cath with severe disease-recommended CABG but pt declined, bilateral cataract surgery/lens implants. Past Anesthesia/Blood Transfusion Reactions: No Reported Reaction Additional Psychological History / Comment(s): Pt resides with his spouse of 65yrs. He uses no assistive device. He drives. Smoking Status: Never smoker Past Alcohol Use History: None Reported Past Drug Use History: None Reported - Past Family History Father Family Medical History: Cancer Additional Family Medical History / Comment(s): Father of prostrate cancer at the age of 87yrs. Mother Family Medical History: COPD Additional Family Medical History / Comment(s): smoker Medications and Allergies Home Medications and Allergies Comment(s): Current Medications Acetaminophen (Tylenol Tab) 325 mg PO Q6HR PRN PRN Reason: Fever and/ or Pain Last Admin: 10/13/17 02:11 Dose: 325 mg Diphenhydramine HCl (Benadryl) 25 mg PO HS PRN PRN Reason: Insomnia Last Admin: 10/13/17 02:11 Dose: 25 mg Fentanyl (Duragesic 50mcg/Hr Patch) 1 patch TRANSDERM Q72H LÁZARO Last Admin: 10/13/17 03:38 Dose: 1 patch Sodium Chloride (Saline 0.9%) 1,000 mls @ 80 mls/hr IV .[id number] LÁZARO Last Admin: 10/13/17 09:40 Dose: 80 mls/hr Norepinephrine Bitartrate 4 mg (/ Dextrose/Water) 250 mls @ 0 mls/hr IV .Q0M ÁLZARO; Protocol Last Titration: 10/13/17 14:55 Dose: 5 mcg/min, 18.75 mls/hr Cefepime HCl 2 gm/ Sodium (Chloride) 50 mls @ 100 mls/hr IVPB Q8HR LÁZARO Sodium Chloride (Saline 0.9%) 2,500 mls @ 999 mls/hr IV .Q2H31M ONE Stop: 10/13/17 17:33 Vancomycin HCl 1,000 mg/ (Sodium Chloride) 250 mls @ 125 mls/hr IVPB Q16H LÁZARO Potassium Chloride/Dextrose/Sod Cl (D5%-1/2ns-Kcl 20 Meq/L Iv Solution) 1,000 mls @ 150 mls/hr IV .Q6H40M LÁZARO Insulin Human Regular 100 unit (/ Sodium Chloride) 101 mls @ 5.15 mls/hr IV .[id number] LÁZARO; Protocol Insulin Aspart (Novolog) 0 unit SQ ACHS LÁZARO; Protocol Last Admin: 10/13/17 12:39 Dose: 5 unit Metoprolol Tartrate (Lopressor) 12.5 mg PO BID LÁZARO Last Admin: 10/13/17 08:16 Dose: 12.5 mg Miscellaneous Information (Magnesium Per Protocol) 1 each MISCELLANE DAILY PRN ; Protocol PRN Reason: Per Protocol Miscellaneous Information (Potassium Per Protocol) 1 each MISCELLANE DAILY PRN PRN Reason: Per Protocol Morphine Sulfate (Morphine Sulfate (Inj)) 2 mg IV Q4H PRN PRN Reason: Pain Scale 4 to 5 Last Admin: 10/13/17 14:33 Dose: 2 mg Naloxone HCl (Narcan) 0.2 mg IV Q2M PRN PRN Reason: Opioid Reversal Pantoprazole Sodium (Protonix) 40 mg IVP BID LÁZARO Last Admin: 10/13/17 08:16 Dose: 40 mg Home Medications Medication Instructions Recorded Confirmed Type Alpha Lipoic Acid 50 mg PO DAILY 06/18/15 10/12/17 History Aspirin 81 mg PO DAILY 06/18/15 10/12/17 History B Complex-Vit C-Vit E-Zinc [Z-Bec] 1 tab PO DAILY 06/18/15 10/12/17 History Benfotiamine 1 tab PO DAILY 06/18/15 10/12/17 History Cinnamon Bark [Cinnamon] 500 mg PO DAILY 06/18/15 10/12/17 History L.acidoph,Paracasei, B.lactis 1 cap PO DAILY 06/18/15 10/12/17 History [Probiotic] Testofen 1 tab PO DAILY 06/18/15 10/12/17 History glipiZIDE [Glucotrol] 10 mg PO AC-BID 06/18/15 10/12/17 History Cholecalciferol [Vitamin D3] 5,000 unit PO DAILY 08/16/16 10/12/17 History Metoprolol Tartrate [Lopressor] 12.5 mg PO BID 08/16/16 10/12/17 History Multivitamins, Thera [Multivitamin 1 tab PO DAILY 08/16/16 10/12/17 History (formulary)] Vitamin B Complex 1 cap PO DAILY 08/16/16 10/12/17 History fentaNYL 50MCG/HR PATCH [Duragesic 50 mcg TRANSDERM DIRECTED 08/16/16 History 50MCG/HR] Naproxen Sod/Diphenhydramine 1 each PO HS PRN 10/12/17 10/12/17 History [Aleve Pm Caplet] Allergies Allergy/AdvReac Type Severity Reaction Status Date / Time Iodine and Iodide Containing Allergy Anaphylaxis Verified 10/12/17 08:25 Produc Penicillins AdvReac Diarrhea Verified 10/12/17 08:25 Physical Exam Vitals: Vital Signs Temp Pulse Resp BP BP Pulse Ox 10/13/17 12:54 114 H 18 85/52 93 L 10/13/17 11:12 113 H 20 10/13/17 11:11 96.6 F L 113 H 20 86/52 87/50 97 10/13/17 08:27 114 H 16 10/13/17 08:26 97.1 F L 114 H 16 101/57 92 L 10/13/17 04:00 98.4 F 94 17 123/63 100 10/13/17 00:00 98.4 F 90 17 124/61 99 10/12/17 20:00 98.7 F 108 H 16 116/47 100 10/12/17 17:41 102 H 18 132/70 96 Intake and Output 10/13/17 10/13/17 10/13/17 06:59 14:59 22:59 Intake Total 150.938 Output Total 550 Balance -550 150.938 Intake: IV 100 Intake, IV Titration 0.938 Amount Norepinephrine 4 mg In 0.938 Dextrose 5% in Water 250 ml @ Titrate IV .Q0M [facility] Rx#:[id number] Oral 50 Output: Urine 550 Other: Voiding Method Urinal Urinal # Bowel Movements 0 Weight 51 kg 51 kg 82-year-old male who has profound pallor, as tachycardia and is mildly tachypneic and is in distress in that he is quite uncomfortable. His blood pressure is noted was 90s over 60s. HEENT: Anicteric conjunctiva are pale and moist nasal mucosa grossly intact without significant lesions, there is no thrush. No blood in the oral cavity Neck: The neck is supple without significant lymphadenopathy or thyromegaly. Lungs: Good bilateral air entry without significant crackles or wheezing. There is no significant bronchial sounds. There is no egophony or dullness. Heart: Irregular and tachycardic no murmur is noted no click or rub. Abdomen: Positive bowel sounds soft has some minimal generalized tenderness but no point tenderness without palpable masses or organomegaly. There was no guarding or rebound. The abdomen is not rigid Extremities: The upper extremities have excellent pulses they are symmetric, no significant petechiae or telangiectasia. No splinter hemorrhages were noted. The lower extremities are free from significant edema. The peripheral pulses were 2+ and symmetric. Both feet are quite cool to touch. Neuro: Awake alert oriented to person place and year he was able to follow commands without difficulty. Skin there is significant pallor Results CBC & Chem 7: 10/13/17 13:11 10/13/17 06:12 Labs: Abnormal Lab Results - Last 24 Hours (Table) 10/12/17 10/12/17 10/12/17 Range/Units 08:12 16:36 17:54 WBC 20.7 H (3.8-10.6) k/uL RBC 2.63 L (4.30-5.90) m/uL Hgb 8.0 L (13.0-17.5) gm/dL Hct 24.9 L (39.0-53.0) % MCV (80.0-100.0) fL MCHC (31.0-37.0) g/dL Plt Count 1186 H* (150-450) k/uL Neutrophils # (1.3-7.7) k/uL Monocytes # (0-1.0) k/uL PT (9.0-12.0) sec INR (<1.2) Chloride (98-107) mmol/L Carbon Dioxide (22-30) mmol/L BUN (9-20) mg/dL Glucose (74-99) mg/dL POC Glucose (mg/dL) 300 H (75-99) mg/dL Plasma Lactic Acid Raji (0.7-2.0) mmol/L Magnesium (1.6-2.3) mg/dL Total Creatine Kinase (55-170) U/L CK-MB (CK-2) (0.0-2.4) ng/mL Troponin I (0.000-0.034) ng/mL Urine Protein (Negative) Urine Glucose (UA) (Negative) Urine Ketones (Negative) Urine Blood (Negative) Urine RBC (0-5) /hpf Urine Mucus (None) /hpf Crossmatch See Detail 10/12/17 10/12/17 10/13/17 Range/Units 20:40 23:34 06:12 WBC 22.6 H 30.4 H* (3.8-10.6) k/uL RBC 2.50 L 2.39 L (4.30-5.90) m/uL Hgb 7.6 L 7.3 L (13.0-17.5) gm/dL Hct 23.6 L 23.3 L (39.0-53.0) % MCV (80.0-100.0) fL MCHC (31.0-37.0) g/dL Plt Count 1089 H* 1508 H* (150-450) k/uL Neutrophils # 27.0 H (1.3-7.7) k/uL Monocytes # 1.7 H (0-1.0) k/uL PT (9.0-12.0) sec INR (<1.2) Chloride (98-107) mmol/L Carbon Dioxide (22-30) mmol/L BUN (9-20) mg/dL Glucose (74-99) mg/dL POC Glucose (mg/dL) 266 H (75-99) mg/dL Plasma Lactic Acid Raji (0.7-2.0) mmol/L Magnesium (1.6-2.3) mg/dL Total Creatine Kinase (55-170) U/L CK-MB (CK-2) (0.0-2.4) ng/mL Troponin I (0.000-0.034) ng/mL Urine Protein (Negative) Urine Glucose (UA) (Negative) Urine Ketones (Negative) Urine Blood (Negative) Urine RBC (0-5) /hpf Urine Mucus (None) /hpf Crossmatch 10/13/17 10/13/17 10/13/17 Range/Units 06:12 06:25 07:13 WBC 33.5 H* (3.8-10.6) k/uL RBC 2.57 L (4.30-5.90) m/uL Hgb 7.5 L (13.0-17.5) gm/dL Hct 25.2 L (39.0-53.0) % MCV (80.0-100.0) fL MCHC 30.0 L (31.0-37.0) g/dL Plt Count 1586 H* (150-450) k/uL Neutrophils # 30.5 H (1.3-7.7) k/uL Monocytes # 1.3 H (0-1.0) k/uL PT (9.0-12.0) sec INR (<1.2) Chloride 108 H (98-107) mmol/L Carbon Dioxide 17 L (22-30) mmol/L BUN 33 H (9-20) mg/dL Glucose 308 H (74-99) mg/dL POC Glucose (mg/dL) 332 H (75-99) mg/dL Plasma Lactic Acid Raji (0.7-2.0) mmol/L Magnesium (1.6-2.3) mg/dL Total Creatine Kinase (55-170) U/L CK-MB (CK-2) (0.0-2.4) ng/mL Troponin I (0.000-0.034) ng/mL Urine Protein (Negative) Urine Glucose (UA) (Negative) Urine Ketones (Negative) Urine Blood (Negative) Urine RBC (0-5) /hpf Urine Mucus (None) /hpf Crossmatch 10/13/17 10/13/17 10/13/17 Range/Units 11:31 12:58 13:11 WBC 39.1 H* (3.8-10.6) k/uL RBC 2.55 L (4.30-5.90) m/uL Hgb 7.4 L (13.0-17.5) gm/dL Hct 26.0 L (39.0-53.0) % MCV 101.9 H (80.0-100.0) fL MCHC 28.7 L (31.0-37.0) g/dL Plt Count 1536 H* (150-450) k/uL Neutrophils # (1.3-7.7) k/uL Monocytes # (0-1.0) k/uL PT (9.0-12.0) sec INR (<1.2) Chloride (98-107) mmol/L Carbon Dioxide (22-30) mmol/L BUN (9-20) mg/dL Glucose (74-99) mg/dL POC Glucose (mg/dL) 303 H (75-99) mg/dL Plasma Lactic Acid Raji (0.7-2.0) mmol/L Magnesium (1.6-2.3) mg/dL Total Creatine Kinase (55-170) U/L CK-MB (CK-2) (0.0-2.4) ng/mL Troponin I (0.000-0.034) ng/mL Urine Protein Trace H (Negative) Urine Glucose (UA) 4+ H (Negative) Urine Ketones 4+ H (Negative) Urine Blood Small H (Negative) Urine RBC 12 H (0-5) /hpf Urine Mucus Rare H (None) /hpf Crossmatch 10/13/17 10/13/17 10/13/17 Range/Units 13:59 14:03 14:07 WBC (3.8-10.6) k/uL RBC (4.30-5.90) m/uL Hgb (13.0-17.5) gm/dL Hct (39.0-53.0) % MCV (80.0-100.0) fL MCHC (31.0-37.0) g/dL Plt Count (150-450) k/uL Neutrophils # (1.3-7.7) k/uL Monocytes # (0-1.0) k/uL PT (9.0-12.0) sec INR (<1.2) Chloride (98-107) mmol/L Carbon Dioxide (22-30) mmol/L BUN (9-20) mg/dL Glucose (74-99) mg/dL POC Glucose (mg/dL) 281 H (75-99) mg/dL Plasma Lactic Acid Raji 17.1 H* (0.7-2.0) mmol/L Magnesium 2.5 H (1.6-2.3) mg/dL Total Creatine Kinase (55-170) U/L CK-MB (CK-2) (0.0-2.4) ng/mL Troponin I (0.000-0.034) ng/mL Urine Protein (Negative) Urine Glucose (UA) (Negative) Urine Ketones (Negative) Urine Blood (Negative) Urine RBC (0-5) /hpf Urine Mucus (None) /hpf Crossmatch 10/13/17 10/13/17 Range/Units 14:07 15:39 WBC (3.8-10.6) k/uL RBC (4.30-5.90) m/uL Hgb (13.0-17.5) gm/dL Hct (39.0-53.0) % MCV (80.0-100.0) fL MCHC (31.0-37.0) g/dL Plt Count (150-450) k/uL Neutrophils # (1.3-7.7) k/uL Monocytes # (0-1.0) k/uL PT 14.6 H (9.0-12.0) sec INR 1.6 H (<1.2) Chloride (98-107) mmol/L Carbon Dioxide (22-30) mmol/L BUN (9-20) mg/dL Glucose (74-99) mg/dL POC Glucose (mg/dL) (75-99) mg/dL Plasma Lactic Acid Raji (0.7-2.0) mmol/L Magnesium (1.6-2.3) mg/dL Total Creatine Kinase 1176 H (55-170) U/L CK-MB (CK-2) 147.0 H* (0.0-2.4) ng/mL Troponin I 19.200 H* (0.000-0.034) ng/mL Urine Protein (Negative) Urine Glucose (UA) (Negative) Urine Ketones (Negative) Urine Blood (Negative) Urine RBC (0-5) /hpf Urine Mucus (None) /hpf Crossmatch Laboratory Results WBC 39.1 k/uL (3.8-10.6) H* 10/13/17 13:11 RBC 2.55 m/uL (4.30-5.90) L 10/13/17 13:11 Hgb 7.4 gm/dL (13.0-17.5) L 10/13/17 13:11 Hct 26.0 % (39.0-53.0) L 10/13/17 13:11 MCV 101.9 fL (80.0-100.0) H 10/13/17 13:11 MCH 29.2 pg (25.0-35.0) 10/13/17 13:11 MCHC 28.7 g/dL (31.0-37.0) L 10/13/17 13:11 RDW 14.6 % (11.5-15.5) 10/13/17 13:11 Plt Count 1536 k/uL (150-450) H* 10/13/17 13:11 Neutrophils % 91 % 10/13/17 07:13 Lymphocytes % 4 % 10/13/17 07:13 Monocytes % 4 % 10/13/17 07:13 Eosinophils % 0 % 10/13/17 07:13 Basophils % 0 % 10/13/17 07:13 Neutrophils # 30.5 k/uL (1.3-7.7) H 10/13/17 07:13 Lymphocytes # 1.4 k/uL (1.0-4.8) 10/13/17 07:13 Monocytes # 1.3 k/uL (0-1.0) H 10/13/17 07:13 Eosinophils # 0.0 k/uL (0-0.7) 10/13/17 07:13 Basophils # 0.1 k/uL (0-0.2) 10/13/17 07:13 Manual Slide Review Performed 10/12/17 08:12 Hypersegmented Neuts Present 10/12/17 12:14 Hypochromasia Moderate 10/13/17 13:11 Poikilocytosis (manual Present 10/12/17 12:14 Anisocytosis (manual) Present 10/12/17 12:14 Macrocytosis Slight 10/13/17 13:11 Crenated Cell Present 10/12/17 12:14 PT 14.6 sec (9.0-12.0) H 10/13/17 15:39 INR 1.6 (<1.2) H 10/13/17 15:39 APTT 23.2 sec (22.0-30.0) 10/13/17 15:39 Sodium 140 mmol/L (137-145) 10/13/17 06:12 Potassium 4.5 mmol/L (3.5-5.1) 10/13/17 06:12 Chloride 108 mmol/L (98-107) H 10/13/17 06:12 Carbon Dioxide 17 mmol/L (22-30) L 10/13/17 06:12 Anion Gap 15 mmol/L 10/13/17 06:12 BUN 33 mg/dL (9-20) H 10/13/17 06:12 Creatinine 0.77 mg/dL (0.66-1.25) 10/13/17 06:12 Est GFR (CKD-EPI)AfAm >90 (>60 ml/min/1.73 sqM) 10/13/17 06:12 Est GFR (CKD-EPI)NonAf 84 (>60 ml/min/1.73 sqM) 10/13/17 06:12 Glucose 308 mg/dL (74-99) H 10/13/17 06:12 POC Glucose (mg/dL) 281 mg/dL (75-99) H 10/13/17 14:03 POC Glu Manager Mobility ID Jennie Escobedo 10/13/17 14:03 Plasma Lactic Acid Raji 17.1 mmol/L (0.7-2.0) H* 10/13/17 13:59 Calcium 8.4 mg/dL (8.4-10.2) 10/13/17 06:12 Magnesium 2.5 mg/dL (1.6-2.3) H 10/13/17 14:07 Total Bilirubin 0.1 mg/dL (0.2-1.3) L 10/12/17 08:12 AST 18 U/L (17-59) 10/12/17 08:12 ALT 30 U/L (21-72) 10/12/17 08:12 Alkaline Phosphatase 37 U/L (38-126) L 10/12/17 08:12 Total Creatine Kinase 1176 U/L (55-170) H 10/13/17 14:07 CK-MB (CK-2) 147.0 ng/mL (0.0-2.4) H* 10/13/17 14:07 CK-MB (CK-2) Rel Index 12.5 10/13/17 14:07 Troponin I 19.200 ng/mL (0.000-0.034) H* 10/13/17 14:07 Total Protein 4.8 g/dL (6.3-8.2) L 10/12/17 08:12 Albumin 3.0 g/dL (3.5-5.0) L 10/12/17 08:12 Urine Color Yellow 10/13/17 12:58 Urine Appearance Clear (Clear) 10/13/17 12:58 Urine pH 5.5 (5.0-8.0) 10/13/17 12:58 Ur Specific Wendel 1.020 (1.001-1.035) 10/13/17 12:58 Urine Protein Trace (Negative) H 10/13/17 12:58 Urine Glucose (UA) 4+ (Negative) H 10/13/17 12:58 Urine Ketones 4+ (Negative) H 10/13/17 12:58 Urine Blood Small (Negative) H 10/13/17 12:58 Urine Nitrite Negative (Negative) 10/13/17 12:58 Urine Bilirubin Negative (Negative) 10/13/17 12:58 Urine Urobilinogen <2.0 mg/dL (<2.0) 10/13/17 12:58 Ur Leukocyte Esterase Negative (Negative) 10/13/17 12:58 Urine RBC 12 /hpf (0-5) H 10/13/17 12:58 Urine WBC 2 /hpf (0-5) 10/13/17 12:58 Ur Squamous Epith Cells <1 /hpf (0-4) 10/13/17 12:58 Urine Mucus Rare /hpf (None) H 10/13/17 12:58 Gastric Occult Blood Positive (Negative) 10/12/17 08:55 Blood Type A Positive 10/12/17 08:12 Blood Type Confirm A Positive 10/12/17 10:15 Blood Type Recheck CABO Indicated 10/12/17 08:12 Antibody Screen NEGATIVE 10/12/17 08:12 Crossmatch See Detail 10/12/17 08:12 Spec Expiration Date 10/15/2017231110/12/17 08:12 Assessment and Plan (1) Acute blood loss anemia Current Visit: Yes Status: Acute Code(s): D62 - ACUTE POSTHEMORRHAGIC ANEMIA SNOMED Code(s): 270053714 (2) Leukocytosis, unspecified Narrative/Plan: 82-year-old male presents to Hospital feeling poorly difficulties and bleeding with fall and was brought to hospital via EMS. An admission there is evidence of significant anemia and evidence of coffee-ground emesis and constantly was taken to the operating room and EGD was performed with evidence of bleeding and clot reoccurred. Postprocedure the patient continued to worsen and is now brought to the intensive care unit. He will receive some fluid resuscitation. Critical care is already evaluated. His blood is being monitored and if his hemoglobin falls is a candidate for transfusion because he is quite symptomatic. He has a significant leukocytosis and thrombocytosis occurring as well as the significant anemia. At this time the blood loss could be driving again changes but there is distinct concern to hematological abnormality have requested the pathologist review the peripheral smear for further evaluation and advice. Cultures have been obtained. There is potential concern underlying sepsis also driving the process for that antibiotic therapy will be started with his penicillin ALLERGY cefepime and vancomycin will be utilized, review all cultures from the past, failed to reveal evidence of prior extensive infections in the past. Current Visit: Yes Status: Acute Code(s): D72.829 - ELEVATED WHITE BLOOD CELL COUNT, UNSPECIFIED SNOMED Code(s): 145524514 (3) Upper GI bleed Current Visit: Yes Status: Acute Code(s): K92.2 - GASTROINTESTINAL HEMORRHAGE, UNSPECIFIED SNOMED Code(s): 98058182 (4) Thrombocytosis Current Visit: Yes Status: Acute Code(s): D47.3 - ESSENTIAL (HEMORRHAGIC) THROMBOCYTHEMIA SNOMED Code(s): 5405678
[2017-10-13 16:31] LABS: Glucose,Whole Blood 221 mg/dL (75-99)
[2017-10-13] MEDS ORDERED: EPINEPHrine 10 ML SYRINGE (0.1 MG/ML) ONE (17:01)
[2017-10-13 17:08] LABS: Glucose,Whole Blood 202 mg/dL (75-99)
[2017-10-13] MEDS ORDERED: MIDAZOLAM 2 MG/2 ML VIAL ONE (17:18)
[2017-10-13 17:48] LABS: ABG Oxygen Saturation 81.1 % (94-97); ABG PCO2 38 mmHg (35-45); ABG PO2 86 mmHg (83-108); ABG TCO2 5 mmol/L (19-24)
[2017-10-13 17:51] LABS: ABG HCO3 4 mmol/L (21-25); ABG PH <7.00 (7.35-7.45)
--- NOTE | 2017-10-13 17:58 | XR ---
EXAMINATION TYPE: XR chest 1V portable DATE OF EXAM: 10/13/2017 COMPARISON: Prior chest x-ray 10/13/2017 and earlier time HISTORY: Tube, intubated, and central line placement TECHNIQUE: Single frontal view of the chest is obtained. FINDINGS: There is been interval placement of an endotracheal tube overlying the tracheal air column . Right jugular central venous catheter is present with the distal tip at the cavoatrial junction lev el. There is no evident pneumothorax or pleural effusion. No significant interval changes, interstiti um is increased. Heart size is stable. IMPRESSION: No evident complication status post intubation and central venous catheter placement.
[2017-10-13 18:19] LABS: Anisocytosis (M) Present; Band Neutrophils % 1 %; Lymphocytes # (M) 2.35 k/uL (1.0-4.8); Monocytes # (M) 2.35 k/uL (0-1.0); Neutrophils % (M) 87 %; Nucleated Red Blood Cells 0 /100 WBC (0-0); Ovalocytes Present; Poikilocytosis (M) Present; RBC Fragments Present; Total Cells Counted 100
[2017-10-13 18:22] VITALS: BP 57/45; PULSE 0; RESP 0
--- NOTE | 2017-10-13 18:53 | CONS ---
CONSULTATION Mr. Walker is an 82-year-old gentleman who is seen for cardiac evaluation. This patient came in yesterday with nausea, vomiting and hematemesis. Patient had a low hemoglobin and patient had massive upper GI bleeding with a hemoglobin of 7 g. Patient underwent EGD today and subsequently he became hypotensive and developed respiratory distress and was transferred to the intensive care unit. The patient has been hypotensive. He is on a high dose of Levophed and is getting blood transfusion. Initial troponin and CPK were positive. The patient has been having some back pain, but no chest pain. Got the history from the family member that the patient does have a history of coronary artery disease several years ago and he had a cardiac catheterization done in the past and the patient has been told that there is nothing much they can do about his blockages and has been followed medically, has not been having any chest pain recently. While I was in the patient's room, he stopped breathing and he developed electromechanical dissociation and CPR was started. Patient was intubated. He received 2 boluses of epinephrine and subsequently in pulse and blood pressures were obtained. At present, patient is intubated. Blood pressure is 78/56 mmHg, heart rate is 90 per minute. HEENT is negative. Neck is supple. HEART: First and second heart sounds are heard. Lungs reveal bilateral scattered rhonchi and rales. Abdomen is soft. EXTREMITIES: Peripheral pulsations are not felt. Hemoglobin is 7.0. FINAL IMPRESSION: This patient came with acute upper gastrointestinal bleeding. The patient's course is complicated by acute myocardial infarction. EKG done this afternoon is suggestive of acute inferior wall myocardial infarction. Patient is currently in cardiogenic and hemorrhagic shock and status post cardiac arrest. I discussed at length with all the family members regarding the patient's condition. His condition is very critical with poor prognosis. They would like to at present continued the comfort measures and they do not want any more resuscitation done. At present we will continue the patient on maximum medical therapy. MMODL / IJN: [id number] /
[2017-10-13 22:43] VITALS: TEMP 96.1
--- NOTE | 2017-10-14 11:12 | P.DS ---
Providers Date of admission: 10/12/17 11:10 Expected date of discharge: 10/13/17 Attending physician: Brian Kaufman Consults: 10/12/17 11:08 Consult Physician Urgent Consulting Provider: Ronald Martin Consult Reason/Comments: GI bleed Do you want consulting provider notified?: Yes Consult Physician Urgent Consulting Provider: Stas Negron Consult Reason/Comments: GI bleed Do you want consulting provider notified?: Yes 10/13/17 08:36 Consult Physician Stat Consulting Provider: Steven Gallardo Consult Reason/Comments: Unknown sorce of infection Do you want consulting provider notified?: Yes 10/13/17 12:36 Consult Physician Urgent Consulting Provider: Aysha Almeida Consult Reason/Comments: icu care Do you want consulting provider notified?: Already Contacted 10/13/17 14:10 Consult Physician Stat Consulting Provider: Prince Monzon Consult Reason/Comments: history of cad and cath Do you want consulting provider notified?: Yes Primary care physician: Brian Kaufman - Discharge Diagnosis(es) (1) Duodenal ulcer Status: Acute (2) Acute esophagitis Status: Acute (3) Hiatal hernia Status: Acute (4) Acute blood loss anemia Status: Acute (5) Dehydration Status: Acute (6) Generalized weakness Status: Acute (7) Upper GI bleed Status: Acute (8) Thrombocytosis Status: Acute (9) Leukocytosis, unspecified Status: Acute (10) Dorsalgia of lumbar region Status: Acute Hospital Course: 82-year-old male who presented to the emergency room with a chief complaint of generalized weakness. The patient states he was ambulating in his house and on two separate occasions he was unable to bear his own weight and fell to to the floor. The patient states he has no other symptoms except just feeling very tired and weak. He denies shortness of breath. Denies chest pain or pressure. Denies nausea or vomiting. Denies hematuria. Denies melena, hematemesis, or hematochezia. The patient has a history of coronary artery disease, diabetes mellitus, gastroesophageal reflux disease, osteoarthritis, and BPH. He also has a history of depression. The patient has chronic back pain and chronic left knee pain and is prescribed a fentanyl patch. Chest x-ray : Hyperinflation may reflect underlying emphysema. No acute cardiopulmonary process. CT brain: No acute cranial hemorrhage or midline shift. There is mild- to-moderate diffuse age-related cerebral atrophy and minimal chronic small vessel ischemic changes noted. Laboratory data: WBC 15.3. Hemoglobin 9.5. Platelet count 1344. Sodium 138. Potassium 5.0. BUN 58. Creatinine 0.70. Glucose 280. Troponin negative 1. Lactic acid 1.7. Urinalysis reveals 4+ glucose and 2+ ketones. Stool for occult blood was positive. The patient was admitted to the hospital under the care of Dr. Kaufman. Consultations were placed to GI and general surgery. He is currently in the emergency room awaiting a bed assignment on the medical floor. 10/13/2017: Overnight, patient slept poorly. For some unknown reason, his IV fluid was hep-locked even though he remained nothing by mouth after midnight for procedure. He complains of profound fatigue. He is pale. He denies any chest pains or shortness of breath. He is status post EGD with cautery this morning. His is at bedside and is case discussed with her as well. 10/13/2017 approximately 1300: I was called by Dr. Martin. Patient was seen in consultation at that time. He saw the patient and believed he was worsening, and called me personally. We briefly discussed the case, and he was transferred to the intensive care unit. Dr. Gallardo was consuled by Dr. Fajardo earlier due to leukocytosis. He had seen the patient later on in the intensive care unit. No Significant reccomendations at that time. Due to his worsening condition he was transfused and he was started on Levophed for hypotension. [employer]ter to see the patient as well. While the binder stripper machine was attending to him, he had stopped breathing and coded. He was resuscitated. He status was changed to comfort care. And he subsequently later on that afternoon. His workup just previously to this, and showed him developing an acute myocardial infarction in evolution. Dr. Maza was consulted for critical care management. Plan - Discharge Summary Discharge Rx Participant: Yes New Discharge Prescriptions: Discontinued glipiZIDE [Glucotrol] 10 mg PO AC-BID Aspirin 81 mg PO DAILY B Complex-Vit C-Vit E-Zinc [Z-Bec] 1 tab PO DAILY L.acidoph,Paracasei, B.lactis [Probiotic] 1 cap PO DAILY Testofen 1 tab PO DAILY Cinnamon Bark [Cinnamon] 500 mg PO DAILY Benfotiamine 1 tab PO DAILY Alpha Lipoic Acid 50 mg PO DAILY Metoprolol Tartrate [Lopressor] 12.5 mg PO BID Vitamin B Complex 1 cap PO DAILY Multivitamins, Thera [Multivitamin (formulary)] 1 tab PO DAILY Cholecalciferol [Vitamin D3] 5,000 unit PO DAILY fentaNYL 50MCG/HR PATCH [Duragesic 50MCG/HR] 50 mcg TRANSDERM DIRECTED Naproxen Sod/Diphenhydramine [Aleve Pm Caplet] 1 each PO HS PRN PRN Reason: sleeplessness Discharge Disposition: - Preliminary Cause of Preliminary Cause of : cardiogenic shock
== END 2017-10-13 23:45 | disposition expired | DRG 377 ==
LOC: EC 07:35 → 6SEL 11:10 → 6ICU 10-13 14:21
PROVIDERS: ADMIT Family Medicine; ATTEND Family Medicine
PROC: 30233N1 Transfusion of Nonautologous Red Blood Cells into Peripheral Vein, Percutaneous Approach (ICD-10-PCS; 2017-10-13)
PROC: 0W3P8ZZ Control Bleeding in Gastrointestinal Tract, Via Natural or Artificial Opening Endoscopic (ICD-10-PCS; principal; 2017-10-13 07:30)
DX: K31.811 Angiodysplasia of stomach and duodenum with bleeding (principal); I21.19 ST elevation (STEMI) myocardial infarction involving other coronary artery of inferior wall; D62 Acute posthemorrhagic anemia; R57.0 Cardiogenic shock; R57.8 Other shock; K26.9 Duodenal ulcer, unspecified as acute or chronic, without hemorrhage or perforation; E86.0 Dehydration; E11.65 Type 2 diabetes mellitus with hyperglycemia; J43.9 Emphysema, unspecified; I45.10 Unspecified right bundle-branch block; Z66 Do not resuscitate; Z51.5 Encounter for palliative care; D72.829 Elevated white blood cell count, unspecified; B35.1 Tinea unguium; K44.9 Diaphragmatic hernia without obstruction or gangrene; D47.3 Essential (hemorrhagic) thrombocythemia; I25.10 Atherosclerotic heart disease of native coronary artery without angina pectoris; G89.29 Other chronic pain; M54.5 Low back pain; M25.562 Pain in left knee; M25.519 Pain in unspecified shoulder; K21.0 Gastro-esophageal reflux disease with esophagitis; N40.1 Benign prostatic hyperplasia with lower urinary tract symptoms; F32.9 Major depressive disorder, single episode, unspecified; N39.498 Other specified urinary incontinence; M19.91 Primary osteoarthritis, unspecified site; Z79.82 Long term (current) use of aspirin; Z79.84 Long term (current) use of oral hypoglycemic drugs; Z79.891 Long term (current) use of opiate analgesic; Z79.899 Other long term (current) drug therapy; Z90.49 Acquired absence of other specified parts of digestive tract; Z98.42 Cataract extraction status, left eye; Z98.41 Cataract extraction status, right eye; Z96.1 Presence of intraocular lens; Z88.0 Allergy status to penicillin; Z88.8 Allergy status to other drugs, medicaments and biological substances; Z91.041 Radiographic dye allergy status; Z82.5 Family history of asthma and other chronic lower respiratory diseases; Z80.42 Family history of malignant neoplasm of prostate; Z81.2 Family history of tobacco abuse and dependence; W18.30XA Fall on same level, unspecified, initial encounter; Y92.002 Bathroom of unspecified non-institutional (private) residence as the place of occurrence of the external cause
CPT/HCPCS: 36415; 36600; 43255; 70450; 71045; 71046; 74019; 80048; 80053; 81001; 81003; 82009; 82271; 82533; 82550; 82553; 82805; 83036; 83605; 83735; 84100; 84484; 85025; 85027; 85610; 85730; 86850; 86900; 86901; 86920; 87040; 87086; 93005; 94002; 96361; 96374; 96375; 99285